=== PATIENT | female | born 1930 | race American Indian/Alaskan Native ===

== ENCOUNTER 2017-08-05 17:16 | Inpatient (IN) | payer MEDICARE, MEDICAID ==
[2017-08-05 17:17] VITALS: BMI 20.5
--- NOTE | 2017-08-05 17:38 | ED PDOC ---
Arrival/HPI - General Historian: Patient - History of Present Illness Time/Duration: Prior to Arrival <Zari Hodge - Last Filed: 08/05/17 20:14> <Neo Bernabe - Last Filed: 08/05/17 22:41> - General Chief Complaint: Psychiatric Evaluation Time Seen by Provider: 08/05/17 17:18 - History of Present Illness Narrative History of Present Illness (Text): 08/05/17 17:38 87-year-old female presents today brought in by ambulance after a suicide attempt. Per intermediate staff the patient tried to hang herself in her room. Patient complaining of chronic abdominal pain. Patient states she has been unable to use the bathroom and everything that they have given her in the intermediate has not worked. Patient complaining of diffuse abdominal tenderness. Denies chest pain or shortness of breath. Denies urinary symptoms. Patient denies fevers or chills. Patient complaining of depression. Patient states "I tried to hang myself today because the abdominal pain is so bad". ( Zari Hodge) Past Medical History - Provider Review Nursing Documentation Reviewed: Yes - Travel History Have you recently traveled outside [place] w/in the past 3 mons?: No - Tetanus Immunization Tetanus Immunization: Unknown - Cardiac Hx Cardiac Disorders: Yes Hx Angina: No Hx Cardiac Arrhythmia: No Hx Circulatory Problems: No Hx Congestive Heart Failure: No Hx Heart Murmur: No Hx Heart Transplant: No Hx Hypertension: No Hx Internal Defibrillator: No Hx Mitral Valve Prolapse: No Hx Pacemaker: No Hx Peripheral Edema: No Hx Peripheral Vascular Disease: No - Pulmonary Hx Respiratory Disorders: No Hx Asthma: No Hx Bronchitis: No Hx Chronic Obstructive Pulmonary Disease (COPD): No Hx Emphysema: No Hx Pneumonia: No Hx Respiratory Aspiration: No Hx Respiratory Tract Infection: No Hx Sleep Apnea: No Hx Tuberculosis: No - Neurological Hx Neurological Disorder: Yes Hx Alzheimer's Disease: Yes HX Cerebrovascular Accident: No Hx Dementia: Yes Hx Dizziness: No Hx Meningitis: No Hx Migraine: No Hx Parkinson's Disease: No Hx Seizures: No Hx Transient Ischemic Attacks (TIA): No - HEENT Hx HEENT Disorder: No Hx Blind: No Hx Cataracts: No Hx Deafness: No Hx Difficulty Chewing: No Hx Epistaxis: No Hx Glaucoma: No Hx Macular Degeneration: No - Renal Hx Renal Disorder: No Hx Dialysis: No Hx Kidney Stones: No Hx Pyelonephritis: No Hx Renal Cancer: No Hx Renal Failure: No - Endocrine/Metabolic Hx Endocrine Disorders: No Hx Adrenal Cancer: No Hx Diabetes Insipidus: No Hx Diabetes Mellitus Type 1: No Hx Diabetes Mellitus Type 2: No Hx Hyperthyroidism: No Hx Hypothyroidism: No Hx Systemic Lupus Erythematosus: No - Hematological/Oncological Hx Blood Disorders: No Hx AIDS: No Hx Anemia: No Hx Cancer: No Hx Chemotherapy: No Hx Cirrhosis: No Hx Hemophilia: No Hx Hepatitis A: No Hx Hepatitis B: No Hx Hepatitis C: No Hx Metastasis: No Hx Shingles: No Hx Sickle Cell Disease: No Hx Unexplained Bleeding: No - Integumentary Hx Dermatological Disorder: No Hx Basal Cell Carcinoma: No Hx Eczema: No Hx Melanoma: No Hx Psoriasis: No Hx Squamous Cell Carcinoma: No - Musculoskeletal/Rheumatological Hx Musculoskeletal Disorders: No Hx Arthritis: No Hx Back Pain: No Hx Degenerative Joint Disease: No Hx Falls: No Hx Fractures: No Hx Gout: No Hx Herniated Disk: No Hx Myasthenia Gravis: No Hx Osteoarthritis: No Hx Osteomyelitis: No Hx Osteoporosis: No Hx Rhabdomyolysis: No Hx Spinal Stenosis: No Hx Unsteady Gait: No - Gastrointestinal Hx Gastrointestinal Disorders: No Hx Colostomy: No Hx Crohn's Disease: No Hx Diverticulitis: No Hx Gall Bladder Disease: No Hx Gastroesophageal Reflux: No Hx Gastrointestinal Ulcer: No Hx Ileostomy: No Hx Liver Failure: No Hx Pancreatitis: No HX Swallowing Problems: No - Genitourinary/Gynecological Hx Genitourinary Disorders: No Hx Incontinence: No Hx Prostate Problems: No Hx Sexually Transmitted Diseases: No Hx Urinary Tract Infection: No - Psychiatric Hx Psychophysiologic Disorder: Yes Hx Anxiety: Yes Hx Bipolar Disorder: Yes Hx Depression: Yes Hx Emotional Abuse: No Hx Hallucinations: No Hx Panic Disorder: No Hx Post Traumatic Stress Disorder: No Hx Psychosis: No Hx Physical Abuse: No Hx Schizophrenia: No Hx Sexual Abuse: No Hx Substance Use: No - Surgical History Hx Amputation: No Hx Appendectomy: No Hx Cardiac Catheterization: No Hx Cholecystectomy: No Hx Coronary Stent: No Hx Gastric Bypass Surgery: No Hx Hysterectomy: No Hx Joint Replacement: No Hx Kidney Transplant: No Hx Liver Transplant: No Hx Mastectomy: No Hx Musculoskeletal Surgery: No Hx Open Heart Surgery: No Hx Orthopedic Surgery: No Hx Splenectomy: No Hx Valve Replacement: No - Suicidal Assessment Feels Threatened In Home Enviroment: No <Zari Hodge - Last Filed: 08/05/17 20:14> Family/Social History - Physician Review Nursing Documentation Reviewed: Yes Family/Social History: Unknown Family HX Smoking Status: Unknown If Ever Smoked Hx Alcohol Use: No Hx Substance Use: No <Zari Hodge - Last Filed: 08/05/17 20:14> Allergies/Home Meds <Ulises Hodgefalguni Callaway - Last Filed: 08/05/17 20:14> <Neo Bernabe - Last Filed: 08/05/17 22:41> Allergies/Adverse Reactions: Allergies No Known Allergies Allergy (Verified 08/05/17 17:21) Home Medications: Home Meds Medication Instructions Recorded Confirmed Alprazolam [Xanax] 0.25 mg PO DAILY 08/05/17 08/05/17 Atorvastatin [Lipitor] 20 mg PO DAILY 08/05/17 08/05/17 Docusate [Colace] 100 mg PO DAILY 08/05/17 08/05/17 Multivitamin [Daily Thanh] 1 tab PO DAILY 08/05/17 08/05/17 Risperidone [Risperdal] 0.5 mg PO HS 08/05/17 08/05/17 Review of Systems - Review of Systems Constitutional: absent: Fatigue, Fevers Respiratory: absent: SOB, Cough Cardiovascular: absent: Chest Pain, Palpitations Gastrointestinal: Abdominal Pain, Constipation. absent: Diarrhea, Nausea, Vomiting Genitourinary Female: absent: Dysuria, Frequency, Hematuria Musculoskeletal: absent: Arthralgias, Back Pain, Neck Pain Skin: absent: Rash, Pruritis Neurological: absent: Headache, Dizziness Psychiatric: Depression, Suicidal Ideation <Zari Hodge - Last Filed: 08/05/17 20:14> Physical Exam Vital Signs Reviewed: Yes Temperature: Afebrile Blood Pressure: Normal Pulse: Regular Respiratory Rate: Normal Appearance: Positive for: Well-Appearing, Non-Toxic, Comfortable Pain Distress: None Mental Status: Positive for: Alert and Oriented X 3 - Systems Exam Head: Present: Atraumatic Mouth: Present: Moist Mucous Membranes Neck: Present: Normal Range of Motion Respiratory/Chest: Present: Clear to Auscultation Cardiovascular: Present: Regular Rate and Rhythm Abdomen: Present: Tenderness (+ diffuse abdominal tenderness), Normal Bowel Sounds Back: Present: Normal Inspection Upper Extremity: Present: Normal ROM Lower Extremity: Present: Normal ROM Neurological: Present: GCS=15, Speech Normal Skin: Present: Warm, Dry Psychiatric: Present: Alert, Normal Affect, Suicidal Ideation <Zari Hodge - Last Filed: 08/05/17 20:14> Vital Signs Temp Pulse Resp BP Pulse Ox 08/05/17 17:28 99 F 66 16 145/76 100 Medical Decision Making <AyeshaZari Callaway - Last Filed: 08/05/17 20:14> - Lab Interpretations I have reviewed the lab results: Yes <Neo Bernabe - Last Filed: 08/05/17 22:41> ED Course and Treatment: 08/05/17 17:41 87yr old female with abdominal pain and suicide attempt at intermediate. Patient is nontoxic well-appearing in no distress vital signs are stable. family at bedside; states patient always with abdominal pain. CBC WNL CMP Tylenol Salicylate Alcohol level Urine drug screen UA; cxr: no infiltrate; reviewed by dr. bernabe. ekg: sinus robert with 1st degree av block and rbbb at 58bpm no st elevations. abd/pelvis CT; FINDINGS: Atelectasis/scarring at the lung bases. Limited noncontrast study. Please note evaluation for underlying visceral lesions/abnormality is limited without intravenous contrast. The liver, spleen, pancreas and right adrenal gland demonstrate no acute abnormalities. Slight prominence of left adrenal gland. No obstructing renal calculus or hydronephrosis. Atherosclerosis. Small fat containing umbilical hernia. Evaluation of the bowel limited without enteric contrast, particularly for underlying inflammation or lesion. Small hiatal hernia. No small bowel obstruction. Normal caliber appendix. Diverticulosis. Evidence of approximately 5.3 cm right ovarian cystic lesion. Further evaluation with dedicated ultrasound is recommended. Multilevel degenerative changes. Degenerative fusion at L4-L5. IMPRESSION: VALENCIA PAPPASISABEL | Final Radiology Report CONFIDENTIALITY STATEMENT This report is intended only for use by the referring physician, and only in accordance with law. If you received this in error, call [phone]. Page 2 of 2 Evidence of approximately 5.3 cm right ovarian cystic lesion. Further evaluation with dedicated ultrasound is recommended. Evaluation of the bowel limited without enteric contrast, particularly for underlying inflammation or lesion. Small hiatal hernia. Diverticulosis. Additional details/findings as above. Correlate clinically. Followup as warranted head CT; FINDINGS: Brain: Atrophy. Bilateral white matter hypoattenuation most consistent with chronic ischemic small vessel changes. Vascular calcification. No hemorrhage. No edema. Ventricles: No hydrocephalus. Bones: Skull is intact. Sinuses: Left sphenoid sinus appears chronically opacified, periosteal changes, calcification within. Partial visualization of mild right maxillary sinus mucosal thickening also with periosteal changes. Mastoid air cells: Fluid in bilateral mastoid air cells. IMPRESSION: No CT evidence of acute intracranial abnormality. Please see details/findings as above case discussed with dr. diane; he knows patient well; add ct head; pt will need psych admission; he would like to be on consult. case signed out to dr. bernabe pending lab/urine and PES evaluation (Zari Hodge) 08/05/17 21:00 Case endorsed to me by SUNDAY oHdge, pending labs, Urinalysis, and PES evaluation. 08/05/17 21:50 Reviewed labs, urine tox screen positive for benzodiazepines. Pt medically cleared for psychiatric evaluation. PES screener Staci to ED to evaluate pt. ( Neo Bernabe) - Lab Interpretations Lab Results: 08/05/17 18:30 08/05/17 19:55 Lab Results 08/05/17 20:10: Urine Opiates Screen Negative, Urine Methadone Screen Negative, Ur Barbiturates Screen Negative, Ur Phencyclidine Scrn Negative, Ur Amphetamines Screen Negative, U Benzodiazepines Scrn Positive H, U Oth Cocaine Metabols Negative, U Cannabinoids Screen Negative 08/05/17 20:10: Urine Color Yellow, Urine Appearance Clear, Urine pH 8.0, Ur Specific [place] 1.015, Urine Protein Negative, Urine Glucose (UA) Negative, Urine Ketones Negative, Urine Blood Negative, Urine Nitrate Negative, Urine Bilirubin Negative, Urine Urobilinogen 0.2, Ur Leukocyte Esterase Small H, Urine RBC 0 - 2, Urine WBC 0 - 2, Ur Epithelial Cells 1 - 3, Amorphous Sediment Moderate, Urine Bacteria Mod 08/05/17 19:55: Alcohol, Quantitative < 10 08/05/17 19:55: Salicylates < 1 L, Acetaminophen < 10.0 L 08/05/17 19:55: Sodium 139, Potassium 4.8, Chloride 105, Carbon Dioxide 26, Anion Gap 13, BUN 10, Creatinine 0.7, Est GFR ( Amer) > 60, Est GFR (Non- Af Amer) > 60, Random Glucose 87, Calcium 9.3, Total Bilirubin 0.7, AST 45 H, ALT 30, Alkaline Phosphatase 114, Total Protein 7.2, Albumin 4.0, Globulin 3.2, Albumin/Globulin Ratio 1.3, Lipase 132 08/05/17 18:30: WBC 3.7 L, RBC 4.68, Hgb 13.4, Hct 39.5, MCV 84.4, MCH 28.6, MCHC 33.9, RDW 14.1, Plt Count 222, MPV 8.9, Gran % 35.2 L, Lymph % (Auto) 55.1 H, [place] % (Auto) 8.3 H, Eos % (Auto) 1.1 L, Baso % (Auto) 0.3, Gran # 1.32 L, Lymph # 2.1, [place] # 0.3, Eos # 0.0, Baso # 0.01 - RAD Interpretation Radiology Orders: 08/05/17 17:31 ABD & PELVIS W/O PO OR IV CONT [CT] Stat CHEST PORTABLE [RAD] Stat 08/05/17 18:55 HEAD W/O CONTRAST [CT] Stat 08/05/17 22:36 PELVIS ULTRASOUND [US] Routine - Medication Orders Current Medication Orders: Nitrofurantoin Macrocrystals (Macrobid) 100 mg PO Q12 STEPHEN Risperidone (Risperdal Tab) 0.5 mg PO ONCE ONE PRN Reason: Protocol Stop: 08/06/17 21:31 Last Admin: 08/05/17 22:07 Dose: 0.5 mg - PA / SENIOR PRODUCTION MANAGER / Resident Statement / has reviewed & agrees with the documentation as recorded. / has examined the patient and agrees with the treatment plan. <Neo Bernabe - Last Filed: 08/05/17 22:41> Disposition/Present on Arrival - Present on Arrival Any Indicators Present on Arrival: No History of DVT/PE: No History of Uncontrolled Diabetes: No Urinary Catheter: No History of Decub. Ulcer: No History Surgical Site Infection Following: None - Disposition Have Diagnosis and Disposition been Completed?: Yes <Zari Hodge - Last Filed: 08/05/17 20:14> - Present on Arrival Any Indicators Present on Arrival: No History of DVT/PE: No History of Uncontrolled Diabetes: No Urinary Catheter: No History of Decub. Ulcer: No History Surgical Site Infection Following: None - Disposition Disposition Time: 22:41 Patient Plan: Admission <Neo Bernabe - Last Filed: 08/05/17 22:41> - Disposition Diagnosis: Chronic abdominal pain, Bipolar disorder, Dementia Disposition: HOSPITALIZED Patient Problems: Current Active Problems Problem Status Onset Chronic abdominal pain Acute Depression Acute Condition: STABLE Forms: [employer] (Nepali)
[2017-08-05 19:01] LABS: BASO # 0.01 K/mm3 (0.0-2.0); BASO % 0.3 % (0.0-3.0); EOS % 1.1 % (1.5-5.0); GRAN # 1.32 (1.4-6.5); GRAN % 35.2 % (50.0-68.0); HEMATOCRIT 39.5 % (36.0-48.0); LYMPH # 2.1 (1.2-3.4); LYMPH % 55.1 % (22.0-35.0); MEAN CELL VOLUME 84.4 fl (80.0-105.0); MEAN CORPUSCULAR HEMOGLOBIN 28.6 pg (25.0-35.0); MEAN CORPUSCULAR HGB CONC 33.9 g/dl (31.0-37.0); MEAN PLATELET VOLUME 8.9 fl (7.0-11.0); MONO # 0.3 (0.1-0.6); MONO % 8.3 % (1.0-6.0); RED CELL DISTRIBUTION WIDTH 14.1 % (11.5-14.5); WHITE BLOOD COUNT 3.7 10^3/ul (4.5-11.0)
--- NOTE | 2017-08-05 20:13 | CT ---
EXAM: CT Head Without Intravenous Contrast CLINICAL HISTORY: 87 years old, female; Condition or disease; Patient HX: Psych/si/behavioral changes TECHNIQUE: Axial computed tomography images of the head/brain without intravenous contrast. All CT scans at this facility use one or more dose reduction techniques, viz.: automated exposure control; ma/kV adjustment per patient size (including targeted exams where dose is matched to indication; i.e. head); or iterative reconstruction technique. COMPARISON: No relevant prior studies available. FINDINGS: Brain: Atrophy. Bilateral white matter hypoattenuation most consistent with chronic ischemic small vessel changes. Vascular calcification. No hemorrhage. No edema. Ventricles: No hydrocephalus. Bones: Skull is intact. Sinuses: Left sphenoid sinus appears chronically opacified, periosteal changes, calcification within. Partial visualization of mild right maxillary sinus mucosal thickening also with periosteal changes. Mastoid air cells: Fluid in bilateral mastoid air cells. IMPRESSION: No CT evidence of acute intracranial abnormality. Please see details/findings as above.
--- NOTE | 2017-08-05 20:17 | CT ---
EXAM: CT Abdomen and Pelvis Without Intravenous Contrast CLINICAL HISTORY: 87 years old, female; Pain; Abdominal pain; Patient HX: Abd pain, constipation TECHNIQUE: Axial computed tomography images of the abdomen and pelvis without intravenous contrast. All CT scans at this facility use one or more dose reduction techniques, viz.: automated exposure control; ma/kV adjustment per patient size (including targeted exams where dose is matched to indication; i.e. head); or iterative reconstruction technique. Coronal and sagittal reformatted images were created and reviewed. COMPARISON: No relevant prior studies available. FINDINGS: Atelectasis/scarring at the lung bases. Limited noncontrast study. Please note evaluation for underlying visceral lesions/abnormality is limited without intravenous contrast. The liver, spleen, pancreas and right adrenal gland demonstrate no acute abnormalities. Slight prominence of left adrenal gland. No obstructing renal calculus or hydronephrosis. Atherosclerosis. Small fat containing umbilical hernia. Evaluation of the bowel limited without enteric contrast, particularly for underlying inflammation or lesion. Small hiatal hernia. No small bowel obstruction. Normal caliber appendix. Diverticulosis. Evidence of approximately 5.3 cm right ovarian cystic lesion. Further evaluation with dedicated ultrasound is recommended. Multilevel degenerative changes. Degenerative fusion at L4-L5. IMPRESSION: Evidence of approximately 5.3 cm right ovarian cystic lesion. Further evaluation with dedicated ultrasound is recommended. Evaluation of the bowel limited without enteric contrast, particularly for underlying inflammation or lesion. Small hiatal hernia. Diverticulosis. Additional details/findings as above. Correlate clinically. Followup as warranted.
[2017-08-05 20:49] LABS: ALB/GLOB RATIO 1.3 (1.1-1.8); ALKALINE PHOSPHATASE 114 U/L (38-126); ALT/SGPT 30 U/L (7-56); AST/SGOT 45 U/L (14-36); BILIRUBIN,TOTAL 0.7 mg/dL (0.2-1.3); BLOOD UREA NITROGEN 10 mg/dL (7-21); CALCIUM 9.3 mg/dL (8.4-10.5); CARBON DIOXIDE 26 mmol/L (21-33); CHLORIDE 105 mmol/L (98-107); GFR AFRICAN-AMERICAN > 60; GLUCOSE,RANDOM 87 mg/dL (70-110); LIPASE 132 U/L (23-300); SODIUM 139 mmol/L (132-148); TOTAL PROTEIN 7.2 g/dL (5.8-8.3)
[2017-08-05 20:51] LABS: URINE BILIRUBIN NEGATIVE (NEGATIVE); URINE BLOOD NEGATIVE (NEGATIVE); URINE GLUCOSE (UA) NEGATIVE (NEGATIVE); URINE KETONE NEGATIVE (NEGATIVE); URINE LEUKOCYTE ESTERASE SMALL Leu/uL (NEGATIVE); URINE PROTEIN NEGATIVE mg/dL (<30 mg/dL); URINE UROBILINOGEN 0.2 E.U./dL (<1 E.U./dL)
[2017-08-05 20:53] LABS: URINE APPEARANCE CLEAR (CLEAR); URINE COLOR YELLOW (YELLOW)
[2017-08-05 20:59] LABS: POTASSIUM 4.8 mmol/L (3.6-5.0)
[2017-08-05 21:25] LABS: URINE AMORPHOUS SEDIMENT MODERATE; URINE BACTERIA MOD (NEG); URINE RBC 0 - 2 /hpf (0-2); URINE WBC 0 - 2 /hpf (0-6)
--- NOTE | 2017-08-06 00:38 | US ---
EXAM: US Pelvis, Transabdominal US Pelvis, Transvaginal CLINICAL HISTORY: 87 years old, female; Abnormal findings; Abnormal imaging test; Additional info: Cyst TECHNIQUE: Real-time transabdominal and transvaginal pelvic ultrasound (complete) with image documentation. Transvaginal imaging was used for better evaluation of the endometrium and adnexa. COMPARISON: CT - ABD PELVIS W/O PO OR IV CONT 08/05/2017 7:01:52 PM FINDINGS: Uterus/cervix: Measured at 4.4 x 1.7 x 2.5 cm. Calcification noted. Endometrial stripe measured at 2.6 mm. Right ovary: 4.8 x 3.4 x 5.7 measurement of ovary/cyst. Although cyst itself appears simple, evaluation is limited. Doppler images not obtained. Left ovary: Not visualized. Free fluid: No free fluid. IMPRESSION: 4.8 x 3.4 x 5.7 measurement of ovary/cyst. Although cyst itself appears simple, evaluation is limited. A cyst of this size is abnormal in a postmenopausal patient. Followup evaluation recommended. Additional details as above.
[2017-08-06] MEDS: DiphenhydrAMINE 12.5 mg/5 ml LIQ UD (5 ml) PO PRN (00:56)
--- NOTE | 2017-08-06 03:40 | PCM.BM ---
<Walter Greene - Last Filed: 08/06/17 03:37> Treatment Plan Problems - Problems identified on initial assessmt suicidal ideation Date Initiated: 08/05/17 Time Initiated: 01:25 Assessment reference: NA Status: Active Treatment assets and liabiliti Patient Assests: ADL independent, negotiates basic needs Patient Liabilities: imparied memory - Milieu Protocol Maintain good personal hygiene: daily Encourage regular showers, daily Remind patient to perform daily oral care, daily Assist patient to perform ADL's Maintain personal safety: daily Educate patient to report safety concerns to staff, daily Monitor environment for contraband/sharps Medication safety: Monitor for expected outcome, potential side effects: daily, Assess barriers to learning: daily, Assess readiness for medication education: daily Family Contact Family involvement: Family/SO is involved Family contact: Patient agrees to contact, Telephone contact initiated by staff Family contact name: Janice Mello - Goals for Treatment Patient goals for treatment: I want to be able to go to the bathroom Discharge/Continuing Care - Education Needs Education Needs: Patient Medication, Patient Diagnosis/Disease Process, Patient Coping Skills, Patient Anger Management skills, Patient Placement options, Patient Activities of Daily Living, Patient Pain, Patient Health Practices/ Safety, Patient Personal Hygiene/Grooming, Patient Aftercare Safety Plan - Discharge Discharge Criteria: Free of Suicidal thoughts, Free of agitation, Normal sleep pattern <Jevon Cuevas - Last Filed: 08/06/17 12:37> Treatment Plan Problems - Problems identified on initial assessmt suicidal ideation Priority: 5 Depression Date Initiated: 08/06/17 Time Initiated: 12:37 Assessment reference: NA Status: Active Priority: 1 Hopelessness Date Initiated: 08/06/17 Time Initiated: 12:37 Assessment reference: NA Status: Active Priority: 2 Ineffective Coping Date Initiated: 08/06/17 Time Initiated: 12:38 Assessment reference: NA Status: Active Priority: 3 Altered Thought Process Date Initiated: 08/06/17 Time Initiated: 12:38 Assessment reference: NA Status: Active Priority: 4 <Yanelis Bentley - Last Filed: 08/06/17 14:58> - Diagnosis (1) Somatic delusion Status: Acute Interventions: 08/06/17 14:59 Psychoeducation/psychotherapy Psychopharmacology/adjustment of medications as needed/ monitoring possible side effects Evaluate pt on daily basis Compliance with medications and follow up appointments Long acting medication if pt is noncompliant with pill form Suicide and homicide risk assessment and prevention, coping strategies, safety plan Relapse prevention Reduction of symptoms Improve functional status Possible assertive community treatment Cognitive behavioral therapy Family involvement Possible social skill training as outpatient (2) MDD (major depressive disorder) Status: Acute Interventions: 08/06/17 15:00 Psychoeducation Psychopharmacology/adjustment of medications as needed/ monitoring possible side effects Evaluate pt on daily basis Compliance with medications and follow up appointments Suicide and homicide risk assessment and prevention Relapse prevention Reduction of symptoms Improve functional status Family involvement As outpatient: cognitive behavioral therapy (3) Dementia Status: Acute Interventions: 08/06/17 15:00 Pt will be seen by medical team as needed Medications will be confirmed and resumed Additional consultation by specialists as needed Lab work as needed (CBC, CMP, TSH, free T4, UA, Urine test for females as needed) CXR as needed EKG Physical therapy valuation as needed neurology consult as needed <Latrice Upton - Last Filed: 08/06/17 16:27>
[2017-08-06 07:39] LABS: HEMATOCRIT 38.4 % (36.0-48.0); MEAN CELL VOLUME 83.7 fl (80.0-105.0); MEAN CORPUSCULAR HEMOGLOBIN 28.3 pg (25.0-35.0); MEAN CORPUSCULAR HGB CONC 33.9 g/dl (31.0-37.0); MEAN PLATELET VOLUME 8.2 fl (7.0-11.0); WHITE BLOOD COUNT 3.7 10^3/ul (4.5-11.0)
[2017-08-06 07:53] LABS: ALB/GLOB RATIO 1.2 (1.1-1.8); ALKALINE PHOSPHATASE 96 U/L (38-126); ALT/SGPT 33 U/L (7-56); AST/SGOT 26 U/L (14-36); BILIRUBIN,TOTAL 0.5 mg/dL (0.2-1.3); BLOOD UREA NITROGEN 7 mg/dL (7-21); CALCIUM 9.2 mg/dL (8.4-10.5); CARBON DIOXIDE 24 mmol/L (21-33); CHLORIDE 107 mmol/L (95-110); CHOLESTEROL 191 mg/dL (130-200); GFR AFRICAN-AMERICAN > 60; GLUCOSE,RANDOM 84 mg/dL (70-110); POTASSIUM 4.1 mmol/L (3.6-5.0); SODIUM 141 mmol/L (132-148); TOTAL PROTEIN 6.6 g/dL (5.8-8.3)
--- NOTE | 2017-08-06 08:42 | CON ---
DATE: 08/05/2017 HISTORY OF PRESENT ILLNESS: I have known Alessandro for two years, now taking care of her at [facility] where she is a permanent resident. She is here in the emergency room with suicidal situation where she was trying to attempt to hang herself I believe with a telephone cord, has a complaint of chronic abdominal pain, constipation, she said she could not take it anymore. She does have a long history of psychiatric problems, chronic issues, chronic complaints, and they change every time I have seen her. PAST MEDICAL HISTORY: She has a past medical history of Alzheimer's disease, dementia, anxiety, bipolar, depression, who has had chronic complaints about feeling of a hole in her head. FAMILY HISTORY: She has no known family history. SOCIAL HISTORY: Denies smoking, drinking, or substance abuse. ALLERGIES: NO KNOWN DRUG ALLERGIES. MEDICATIONS: She is on Xanax, Lipitor for high cholesterol, Colace for constipation, vitamin, and Risperdal by the psychiatrist. REVIEW OF SYSTEMS: No acute vision or hearing changes. She has this chronic complaint of a hole in her head that comes from the top of her mouth, but has nothing there. No chest pain. No palpitations. No shortness of breath or cough. Presently, she has abdominal pain, constipation. No diarrhea, nausea or vomiting. No problems urinating. No back pain or neck pain. No skin itching. No rashes. No dizziness. No headache, but chronic head pain. There is depression and suicidal ideation tonight . PHYSICAL EXAMINATION: VITAL SIGNS: She has 99 temperature, 66 pulse, 16 respiratory rate, 145/76 blood pressure, and 100% O2 sat. GENERAL: She is comfortable, appearing nontoxic at this time. She is alert. She understands she is in the emergency room of [facility]. HEENT: Head is atraumatic and normocephalic. Throat is moist. NECK: Supple. HEART: Regular rate. LUNGS: Clear to auscultation. ABDOMEN: Has diffuse abdominal tenderness, but there are bowel sounds. No guarding. No rebound. No CVA tenderness. EXTREMITIES: Have no edema. LUMBER HANDLER: GCS is 15. Speech is normal. SKIN: Warm and dry. No apparent rash or ulcer. LYMPHATICS: Thyroid midline. No palpable or appreciable lymphadenopathy. DIAGNOSTIC DATA: She had multiple tests. She has a urine, which is positive for benzodiazepine, Urine is clear small leukocyte. I will put her on antibiotics for urinary tract infection. She has 139 sodium, potassium 4.8, BUN 10, creatinine 0.7, GFR is greater than 60, sugar is 87, calcium is 9.3, total bilirubin is 0.7, AST is 45, ALT is 30, alkaline phosphatase 114. Total protein is 7.2, albumin is 4, globulin 3.2, lipase is 132. White count 3.7, hemoglobin, 30.4, hematocrit 39.5 and platelets are 222. She had a couple of CAT scans done. Abdominal pain she has been having shows a 5.3 cm right ovarian cyst occlusion. We had an ultrasound to further look at that, that was all they found. CAT scan of the head was fine. Chest x-ray is pending. She is going to go to psychiatry. I was consulted. I will put her on medicine for urinary tract infection and get a ultrasound of the ovaries and the pelvis. I will watch her closely, check her labs in the morning. Thank you very much for the consult. Addy Mtz DO MTDD
--- NOTE | 2017-08-06 10:12 | RAD ---
HISTORY: pes/ abd pain COMPARISON: [facility] 12/18/2013. FINDINGS: LUNGS: Trace linear atelectasis or fibrosis in the bilateral bases approaching the costophrenic sulci laterally bilaterally. No acute infiltrate is appreciate bilaterally. PLEURA: No significant pleural effusion identified, no pneumothorax apparent. CARDIOVASCULAR: Normal. OSSEOUS STRUCTURES: No significant abnormalities. VISUALIZED UPPER ABDOMEN: Normal. OTHER FINDINGS: None. IMPRESSION: Limited linear atelectasis or fibrosis in the bilateral bases as discussed above with no acute infiltrate pleural effusion or pneumothorax appreciable this time. No acute cardiac disease appreciable grossly.
--- NOTE | 2017-08-06 12:11 | PN ---
DATE: SUBJECTIVE: I saw her in the psychiatric unit. There is a 1:1 on her. She is still mentally off and complaining. She is on Benadryl, Celexa, Macrobid for UTI, Risperdal, Xanax. She had multiple tests. She has an ovarian cyst, which in her age group is not supposed to be there. She had transvaginal ultrasound, pelvic ultrasound, head CT. Abdomen and pelvic CT and chest x-ray is pending. I consulted with Dr. Miranda of [facility] doctor to evaluate the ovarian cyst. She needs psychiatry to help us with her mentation. PHYSICAL EXAMINATION VITAL SIGNS: She has a 98.3 temperature, 68 pulse, 165/97 blood pressure, 18 respiratory rate, 100% O2 saturation on room air. I will keep an eye on her blood pressure, it is the first time it has been high; if it continues to be high, I will put her on antihypertensive medications. HEENT: Head is atraumatic, normocephalic. HEART: Regular rate. LUNGS: Clear to auscultation. ABDOMEN: Soft. EXTREMITIES: No edema. ASSESSMENT AND PLAN: We will watch her very closely in the psychiatric unit. Get [facility] to see her. Watch her blood pressure and she is here for suicidal ideation and possible plan and treatment for that as needed, depression, urinary tract infection, ovarian cyst, now hypertension. We will follow closely. Addy Mtz DO
--- NOTE | 2017-08-06 15:37 | PCM.PSYCH ---
Initial Psychiatric Evaluation - Initial Psychiatric Evaluation Type of Admission: Voluntary Legal Status: DPOA (pt's POA signed consent for tx, original was placed in chart ) Chief Complaint (in patient's own words): "I wanted to end up my life, I thought I have a gastric cancer..." Patient's Reaction to Hospitalization: pt was admitted for evaluation of depressive symptoms which are related to somatic delusions that pt has stomach cancer, pt put a telephone cord around her neck, attempted to kill herself in the NH. History of Present Illness and Precipitating Events: 87-year-old female with h/o dementia with psychosis, one previous psych admission to this facility in 2013 under 's service, pt has POA pt's niece who sign consent for tx, pt was sent by [facility] s/p suicidal attempt, pt put a telephone cord around her neck, pt also has a lot of psychosomatic delusions about stomach cancer, multiple abdominal complaints. Due to the severity of patients symptoms s/p suicidal attempt, disorganized thoughts and behavior, pt could not be maintained as outpatient setting, needs further evaluation and stabilization in acute psychiatric unit. Stressors: somatic delusions and possible abdominal pain and discomfort. pt was seen at tx team meeting, pt is on 1:1 for risk of falls. Psychosis: pt has a lot of somatic delusions "I know I have a stomach cancer because I have pain", pt is convinced that it it true, d/w today, no evidence for that. Depression: "I was very depressed, I wanted to end up my life", "Now I don't feel this way, I changed my mind", no clear explanation why, pt also reported to feel hopeless and helpless. Suicidal thoughts/plans/intent:pt denied thoughts of harming self or others during the interview, denied intent or plan, no remorse for her attempt in NH. Rosa:no manic symptoms identified or reported. Anxiety:denied PTSD:denied Abuse:denied Substance abuse: pt denied using drugs, denied smoking. Past psychiatric h/o:h/o dementia with psychosis, as per h/o Bipolar disorder II , h/o one prior psych admission in 2013 into this facility for tactile hallucinations, inability to function. Suicidal attempts: denied Medical h/o: frontotemporal dementia, hyperlipidemia, Alzheimer's disease Family h/o: unknown Social h/o: as per previous assessment pt was , lived in [place], pt has 2 sons, nieces. Treatment goals: "I want to feel better and get out of here...." 08/06/17 07:29 08/06/17 07:29 Lab Results 08/06/17 07:29: Hemoglobin A1c 5.7 08/06/17 07:29: Sodium 141, Potassium 4.1, Chloride 107, Carbon Dioxide 24, Anion Gap 14, BUN 7, Creatinine 0.7, Est GFR ( Amer) > 60, Est GFR (Non- Af Amer) > 60, Random Glucose 84, Calcium 9.2, Total Bilirubin 0.5, AST 26, ALT 33, Alkaline Phosphatase 96, Total Protein 6.6, Albumin 3.5, Globulin 3.1, Albumin/Globulin Ratio 1.2, Triglycerides 82, Cholesterol 191, LDL Cholesterol Direct 74, HDL Cholesterol 75 H 08/06/17 07:29: WBC 3.7 L, RBC 4.59, Hgb 13.0, Hct 38.4, MCV 83.7, MCH 28.3, MCHC 33.9, RDW 14.0, Plt Count 196, MPV 8.2 08/05/17 20:10: Urine Opiates Screen Negative, Urine Methadone Screen Negative, Ur Barbiturates Screen Negative, Ur Phencyclidine Scrn Negative, Ur Amphetamines Screen Negative, U Benzodiazepines Scrn Positive H, U Oth Cocaine Metabols Negative, U Cannabinoids Screen Negative 08/05/17 20:10: Urine Color Yellow, Urine Appearance Clear, Urine pH 8.0, Ur Specific [place] 1.015, Urine Protein Negative, Urine Glucose (UA) Negative, Urine Ketones Negative, Urine Blood Negative, Urine Nitrate Negative, Urine Bilirubin Negative, Urine Urobilinogen 0.2, Ur Leukocyte Esterase Small H, Urine RBC 0 - 2, Urine WBC 0 - 2, Ur Epithelial Cells 1 - 3, Amorphous Sediment Moderate, Urine Bacteria Mod 08/05/17 19:55: Alcohol, Quantitative < 10 08/05/17 19:55: Salicylates < 1 L, Acetaminophen < 10.0 L 08/05/17 19:55: Sodium 139, Potassium 4.8, Chloride 105, Carbon Dioxide 26, Anion Gap 13, BUN 10, Creatinine 0.7, Est GFR ( Amer) > 60, Est GFR (Non- Af Amer) > 60, Random Glucose 87, Calcium 9.3, Total Bilirubin 0.7, AST 45 H, ALT 30, Alkaline Phosphatase 114, Total Protein 7.2, Albumin 4.0, Globulin 3.2, Albumin/Globulin Ratio 1.3, Lipase 132 08/05/17 18:30: WBC 3.7 L, RBC 4.68, Hgb 13.4, Hct 39.5, MCV 84.4, MCH 28.6, MCHC 33.9, RDW 14.1, Plt Count 222, MPV 8.9, Gran % 35.2 L, Lymph % (Auto) 55.1 H, [place] % (Auto) 8.3 H, Eos % (Auto) 1.1 L, Baso % (Auto) 0.3, Gran # 1.32 L, Lymph # 2.1, [place] # 0.3, Eos # 0.0, Baso # 0.01 Vital Signs Temp Pulse Resp BP Pulse Ox 08/06/17 01:51 18 08/06/17 00:47 98.3 F 68 18 165/97 H 100 08/05/17 23:13 72 18 138/88 100 08/05/17 17:28 99 F 66 16 145/76 100 Review of Systems: see Medical consult. MSE: acceptable personal hygiene, poor ADLs, Pt deemed to be reliable historian , aware of the reasons for this admission, well related to this marketing writer. Pt looks stated age, very thin build AAF, there is some psychomotor retardation, speech was: underproductive, low volume, eye contact:intermittent, mood described: "I was feeling depressed", affect: constricted, but was minimally reactive, mood congruent, thought process: goal directed, thought content: deneid SI/ HI at the moment of the interview, contracted for safety, pt has multiple somatic delusions, denied paranoid ideation, insight/judgement:limited , impulse control is unpredictable. Impression: as per h/o Alzheimer's dementia with psychosis as per h/o frontotemporal dementia as per h/o bipolar disorder. Treatment plan: pt is on 1:1 for safety Milieu/structure/supportive therapy Medical consult appreciated, see medical team note for more detailed info SW consultation for discharge plan and social issues Med management celexa was started for depression meds resumed from the NH xanax 0.25mg o daily as per [place] atorvastatin 20mg po daily as per [place] docusate 1cap bid as per [place] MVI po daily as per [place] risperidal 0.25mg po daily and 0.5mg po hs for psychosis Family involvement Follow up on labs Will monitor closely Pt was educated about risk/benefits and alternatives of medications, coping strategies (safety plan, suicide prevention), relapse prevention, importance of follow up with psychiatrist and therapist, stay away from drugs/alcohol/smoking Current Medications: Active Medications Generic Name Dose Route Start Last Admin Trade Name Freq PRN Reason Stop Dose Admin Alprazolam 0.25 mg 08/06/17 08:00 Xanax PO 08/13/17 08:01 DAILY STEPHEN Protocol Citalopram Hydrobromide 5 mg 08/06/17 08:00 Celexa PO DAILY STEPHEN Diphenhydramine HCl 12.5 mg 08/06/17 00:44 08/06/17 00:56 Benadryl PO 12.5 mg HS PRN Administration Insomnia Nitrofurantoin Macrocrystals 100 mg 08/06/17 06:00 08/06/17 07:03 Macrobid PO 100 mg Q12 STEPHEN Administration Risperidone 0.5 mg 08/06/17 21:30 08/05/17 22:07 Risperdal Tab PO 08/06/17 21:31 0.5 mg ONCE ONE Administration Protocol Risperidone 0.25 mg 08/06/17 08:00 Risperdal Tab PO DAILY STEPHEN Protocol Past Psychiatric History - Past Psychiatric History Pertinent Medical Hx (Current Medical&Sleep Prob, Allergies): Allergies Allergy/AdvReac Type Severity Reaction Status Date / Time No Known Allergies Allergy Verified 08/06/17 01:48 Alprazolam [Xanax] 0.25 mg PO DAILY 08/05/17 Atorvastatin [Lipitor] 20 mg PO DAILY 08/05/17 Docusate [Colace] 100 mg PO DAILY 08/05/17 Multivitamin [Daily Thanh] 1 tab PO DAILY 08/05/17 Risperidone [Risperdal] 0.5 mg PO HS 08/05/17 DSM 5 DX - Recommended/Plan of Treatment Projected ELOS: 7days Prognosis: guarded Discharge Plan and Discharge Criteria: Pt will be not depressed or manic, will be more hopeful, will be not psychotic or anxious, will be not having thoughts of harming self or others, will be tolerating medications well, will not have major side effects, will be able to function, will not pose threat to self or others. - Smoking Cessation Smoking Cessation Initiated: No Reason for not providing: pt denied smoking
--- NOTE | 2017-08-06 15:49 | CARD ---
APPROVED REPORT EKG Measurement Heart [id number] <Conclusion> Sinus bradycardia with 1st degree AV block Right bundle branch block Left anterior fascicular block Bifascicular block Abnormal ECG
--- NOTE | 2017-08-06 16:16 | CP.PCM.CON ---
History of Present Illness - History of Present Illness History of Present Illness: Patient is a 87 yo with a history of abdominal pain due to severe constipation, history of dementia with psychosis and currently being treated for recent suicidal gesture, found to have a 4x5cm simple ovarian lesion on CT scan. On further imaging, lesion was found to be a simple ovarian cyst. Patient was admitted for severe abdominal pain due to constipation and suicidal gesture secondary to the abdominal pain. Due to patient's current dementia, history is limited, but patient denies CP, no SOB, no N/V, tolerating PO diet, voiding well , ambulating well, no abdominal pain Past Patient History - Tetanus Immunizations Tetanus Immunization: Unknown - Past Social History Smoking Status: Unknown If Ever Smoked - CARDIAC Hx Cardiac Disorders: Yes Hx Hypertension: Yes - PULMONARY Hx Tuberculosis: No - NEUROLOGICAL HX Cerebrovascular Accident: No Hx Seizures: No - HEENT Hx HEENT Problems: No Hx Cataracts: No Hx Deafness: No Hx Difficulty Chewing: No Hx Epistaxis: No Hx Glaucoma: No Hx Macular Degeneration: No - RENAL Hx Chronic Kidney Disease: No Hx Dialysis: No Hx Kidney Stones: No Hx Pyelonephritis: No Hx Renal (Kidney) Cancer: No Hx Renal Failure: No - ENDOCRINE/METABOLIC Hx Endocrine Disorders: No Hx Adrenal Cancer: No Hx Diabetes Insipidus: No Hx Diabetes Mellitus Type 1: No Hx Diabetes Mellitus Type 2: No Hx Hyperthyroidism: No Hx Hypothyroidism: No Hx Systemic Lupus Erythematosus: No - HEMATOLOGICAL/ONCOLOGICAL Hx Cancer: No Hx Human Immunodeficiency Virus (HIV): No - INTEGUMENTARY Hx Dermatological Problems: No Hx Basil Cell: No Hx Eczema: No Hx Melanoma: No Hx Psoriasis: No Hx Squamous Cell: No - MUSCULOSKELETAL/RHEUMATOLOGICAL Hx Musculoskeletal Disorders: No Hx Arthritis: No Hx Back Pain: No Hx Degenerative Joint Disease: No Hx Falls: No Hx Fractures: No Hx Gout: No Hx Herniated Disk: No Hx Myasthenia Gravis: No Hx Osteoarthritis: No Hx Osteomyelitis: No Hx Osteoporosis: No Hx Rhabdomyolysis: No Hx Spinal Stenosis: No Hx Unsteady Gait: No - GASTROINTESTINAL Hx Gastrointestinal Disorders: No Hx Colostomy: No Hx Crohn's Disease: No Hx Diverticulitis: No Hx Gall Bladder Disease: No Hx Gastroesophageal Reflux: No Hx Ileostomy: No Hx Liver Failure: No Hx Pancreatitis: No HX Swallowing Problems: No - GENITOURINARY/GYNECOLOGICAL Hx Sexually Transmitted Disorders: No - PSYCHIATRIC Hx Anxiety: Yes Hx Substance Use: No - SURGICAL HISTORY Hx Amputation: No Hx Appendectomy: No Hx Cardiac Catheterization: No Hx Cholecystectomy: No Hx Coronary Stent: No Hx Gastric Bypass Surgery: No Hx Hysterectomy: No Hx Joint Replacement: No Hx Kidney Transplant: No Hx Liver Transplant: No Hx Mastectomy: No Hx Musculoskeletal Surgery: No Hx Open Heart Surgery: No Hx Orthopedic Surgery: No Hx Splenectomy: No Hx Valve Replacement: No Meds Allergies/Adverse Reactions: Allergies Allergy/AdvReac Type Severity Reaction Status Date / Time No Known Allergies Allergy Verified 08/06/17 01:48 - Medications Medications: Current Medications Alprazolam (Xanax) 0.25 mg PO DAILY STEPHEN PRN Reason: Protocol Stop: 08/13/17 08:01 Last Admin: 08/06/17 08:00 Dose: 0.25 mg Citalopram Hydrobromide (Celexa) 5 mg PO DAILY [facility] Last Admin: 08/06/17 09:39 Dose: 5 mg Diphenhydramine HCl (Benadryl) 12.5 mg PO HS PRN PRN Reason: Insomnia Last Admin: 08/06/17 00:56 Dose: 12.5 mg Nitrofurantoin Macrocrystals (Macrobid) 100 mg PO Q12 STEPHEN Last Admin: 08/06/17 07:03 Dose: 100 mg Risperidone (Risperdal Tab) 0.5 mg PO ONCE ONE PRN Reason: Protocol Stop: 08/06/17 21:31 Last Admin: 08/05/17 22:07 Dose: 0.5 mg Risperidone (Risperdal Tab) 0.25 mg PO DAILY STEPHEN PRN Reason: Protocol Last Admin: 08/06/17 08:00 Dose: 0.25 mg Risperidone (Risperdal Tab) 0.5 mg PO HS STEPHEN PRN Reason: Protocol Physical Exam - Constitutional Appears: Non-toxic, Confused Additional comments: Dementia with psychosis - Head Exam Head Exam: ATRAUMATIC - Eye Exam Pupil Exam: PERRL - Neck Exam Neck exam: Positive for: Normal Inspection - Respiratory Exam Respiratory Exam: Clear to Auscultation Bilateral, NORMAL BREATHING PATTERN - Cardiovascular Exam Cardiovascular Exam: REGULAR RHYTHM - GI/Abdominal Exam GI & Abdominal Exam: Normal Bowel Sounds, Soft Additional comments: no rebound, no gaurding, no abdominal discomfort - Extremities Exam Extremities exam: Positive for: normal inspection - Skin Skin Exam: Dry Results - Vital Signs Recent Vital Signs: Last Vital Signs Temp 98.3 F 08/06/17 00:47 Pulse 68 08/06/17 00:47 Resp 18 08/06/17 01:51 BP 165/97 H 08/06/17 00:47 Pulse Ox 100 08/06/17 00:47 - Labs Result Diagrams: 08/06/17 07:29 08/06/17 07:29 Labs: Laboratory Results - last 24 hr 08/06/17 08/06/17 08/06/17 07:29 07:29 07:29 WBC 3.7 L RBC 4.59 Hgb 13.0 Hct 38.4 MCV 83.7 MCH 28.3 MCHC 33.9 RDW 14.0 Plt Count 196 MPV 8.2 Sodium 141 Potassium 4.1 Chloride 107 Carbon Dioxide 24 Anion Gap 14 BUN 7 Creatinine 0.7 Est GFR ( Amer) > 60 Est GFR (Non-Af Amer) > 60 Random Glucose 84 Hemoglobin A1c 5.7 Calcium 9.2 Total Bilirubin 0.5 AST 26 ALT 33 Alkaline Phosphatase 96 Total Protein 6.6 Albumin 3.5 Globulin 3.1 Albumin/Globulin Ratio 1.2 Triglycerides 82 Cholesterol 191 LDL Cholesterol Direct 74 HDL Cholesterol 75 H Assessment & Plan - Assessment and Plan (Free Text) Assessment: A/P 87 yo admitted for severe abdominal pain due to constipation and suicidal gesture secondary to dementia with psychosis, found to have a 4x5 cm right ovarian cyst 1. Patient incidentally found to have a 4x5cm right ovarian cyst that looks to be simple in nature. No other suspicious findings found on U/S that warrant surgery intervention such as calcifications, septations, papillary excrescences , solid in appearance. Patient currently is asymptomatic, no abdominal pain on exam. A simple cyst such as this is appropriate to follow with U/S every 6-12 months to look for changes in appearance. No need for surgical intervention or urogynecology physician oncology consultation at this time. 2. Suggest patient could have a CA-125 drawn - it is a good predictor of postmenopausal epithelial ovarian malignancy. If over 35, urogynecology physician or urogynecology physician oncology should be re-consulted 3. Consult appreciated. Patient otherwise to be discharged when medically stable by attending - Date & Time Date: 08/06/17 Time: 16:15
--- NOTE | 2017-08-07 11:36 | PN ---
SUBJECTIVE: I saw the patient sitting out of bed to chair, eating her breakfast. She is in good spirits this morning, feeling better actually and I think mildly improved. MEDICATIONS: She is on Benadryl; Celexa; Macrobid, which I am going to stop; Risperdal; Xanax. PHYSICAL EXAMINATION VITAL SIGNS: She has 98.3 temperature, 68 pulse, 109/64 blood pressure, 18 respiratory rate and 100% O2 sat on room air. HEENT: Head is atraumatic and normocephalic. Throat is moist. NECK: Supple. HEART: Regular rate. LUNGS: Clear to auscultation. ABDOMEN: Soft, nontender, positive bowel sounds. EXTREMITIES: No edema. LABORATORY DATA: She had a lab test which showed 3.7 white count, 13 hemoglobin, 38.4 hematocrit with 196 platelets. Sodium 141, potassium 4.1, BUN 7, creatinine 0.7, GFR is greater than 60. Hemoglobin A1c is 5.7. Calcium is 9.2. Total bilirubin is 0.5. AST is 26, ALT is 33, alk phos is 96, total protein is 6.2, albumin is 3.5, globulin is 3.1. Triglycerides 82, cholesterol is 192, LDL is 74, HDL is high at 75 which is great, lipase is 132. Urine with moderate bacteria. Toxicology was positive for benzos, but the microbiology showed no growth in urine, I will stop the antibiotics. She was seen by [facility]. I will order CA125; otherwise, she has a simple cyst of the ovary. We will continue with the aggressive psychiatric care, which I think is starting to work. We will continue with aggressive care anyway on her for her change in mentation and she is here for suicidal thoughts and action, hypertension, ovarian cyst, UTI, abdominal pain. Addy Mtz DO
--- NOTE | 2017-08-07 15:46 | PCM.PYCHPN ---
Psychiatric Progress Note - Psychiatric Progress Note Patient seen today, length of contact: 30min Patient Chief Complaint: "I do believe in God, I want to get out of here as fast as possible" Medical Problems: multiple medical issues, please see medical team note for more detailed info Diagnostic Results: 08/06/17 07:29 08/06/17 07:29 Lab Results 08/06/17 07:29: Hemoglobin A1c 5.7 08/06/17 07:29: Sodium 141, Potassium 4.1, Chloride 107, Carbon Dioxide 24, Anion Gap 14, BUN 7, Creatinine 0.7, Est GFR ( Amer) > 60, Est GFR (Non- Af Amer) > 60, Random Glucose 84, Calcium 9.2, Total Bilirubin 0.5, AST 26, ALT 33, Alkaline Phosphatase 96, Total Protein 6.6, Albumin 3.5, Globulin 3.1, Albumin/Globulin Ratio 1.2, Triglycerides 82, Cholesterol 191, LDL Cholesterol Direct 74, HDL Cholesterol 75 H 08/06/17 07:29: WBC 3.7 L, RBC 4.59, Hgb 13.0, Hct 38.4, MCV 83.7, MCH 28.3, MCHC 33.9, RDW 14.0, Plt Count 196, MPV 8.2 08/05/17 20:10: Urine Opiates Screen Negative, Urine Methadone Screen Negative, Ur Barbiturates Screen Negative, Ur Phencyclidine Scrn Negative, Ur Amphetamines Screen Negative, U Benzodiazepines Scrn Positive H, U Oth Cocaine Metabols Negative, U Cannabinoids Screen Negative 08/05/17 20:10: Urine Color Yellow, Urine Appearance Clear, Urine pH 8.0, Ur Specific [place] 1.015, Urine Protein Negative, Urine Glucose (UA) Negative, Urine Ketones Negative, Urine Blood Negative, Urine Nitrate Negative, Urine Bilirubin Negative, Urine Urobilinogen 0.2, Ur Leukocyte Esterase Small H, Urine RBC 0 - 2, Urine WBC 0 - 2, Ur Epithelial Cells 1 - 3, Amorphous Sediment Moderate, Urine Bacteria Mod 08/05/17 19:55: Alcohol, Quantitative < 10 08/05/17 19:55: Salicylates < 1 L, Acetaminophen < 10.0 L 08/05/17 19:55: Sodium 139, Potassium 4.8, Chloride 105, Carbon Dioxide 26, Anion Gap 13, BUN 10, Creatinine 0.7, Est GFR ( Amer) > 60, Est GFR (Non- Af Amer) > 60, Random Glucose 87, Calcium 9.3, Total Bilirubin 0.7, AST 45 H, ALT 30, Alkaline Phosphatase 114, Total Protein 7.2, Albumin 4.0, Globulin 3.2, Albumin/Globulin Ratio 1.3, Lipase 132 08/05/17 18:30: WBC 3.7 L, RBC 4.68, Hgb 13.4, Hct 39.5, MCV 84.4, MCH 28.6, MCHC 33.9, RDW 14.1, Plt Count 222, MPV 8.9, Gran % 35.2 L, Lymph % (Auto) 55.1 H, [place] % (Auto) 8.3 H, Eos % (Auto) 1.1 L, Baso % (Auto) 0.3, Gran # 1.32 L, Lymph # 2.1, [place] # 0.3, Eos # 0.0, Baso # 0.01 Vital Signs Temp Pulse Resp BP Pulse Ox 08/07/17 07:00 98.3 F 68 17 102/58 L 08/06/17 16:07 65 109/64 08/06/17 01:51 18 08/06/17 00:47 98.3 F 68 18 165/97 H 100 08/05/17 23:13 72 18 138/88 100 08/05/17 17:28 99 F 66 16 145/76 100 USG ovarian cyst CA 125 was ordered DSM 5 Symptoms Update: 87-year-old female with h/o dementia with psychosis, one previous psych admission to this facility in 2013 under 's service, pt has POA pt's niece who sign consent for tx, pt was sent by [facility] s/p suicidal attempt, pt put a telephone cord around her neck, pt also has a lot of psychosomatic delusions about stomach cancer, multiple abdominal complaints. pt was seen by nurse gynecology team, was found to have ovarian cyst. pt was seen at her room. pt is disengaged, appears suspicious, guarded, pt said "I am leaving today, my niece is coming and I am leaving with her". pt is less somatic, but was refusing to take antibiotics for possible UTI "I do believe in God, I don't need to be on antibiotics". Depression: "I am very depressed". Temp Pulse Resp BP Pulse Ox 08/06/17 01:51 18 08/06/17 00:47 98.3 F 68 18 165/97 H 100 08/05/17 23:13 72 18 138/88 100 08/05/17 17:28 99 F 66 16 145/76 100 Review of Systems: see Medical consult. MSE: acceptable personal hygiene, poor ADLs. Pt looks stated age, very thin build AAF, there is some psychomotor retardation, speech was: underproductive, low volume, eye contact:intermittent, mood described: "I was feeling depressed" , affect: constricted, but was minimally reactive, mood congruent, thought process: goal directed, thought content: deneid SI/ HI at the moment of the interview, contracted for safety, pt has multiple somatic delusions, denied paranoid ideation, insight/judgment: limited , impulse control is unpredictable. Impression: as per h/o Alzheimer's dementia with psychosis as per h/o frontotemporal dementia as per h/o bipolar disorder. Plan: pt is on 1:1 for safety Milieu/structure/supportive therapy Medical consult appreciated, see medical team note for more detailed info SW consultation for discharge plan and social issues Med management celexa was started for depression meds resumed from the [place] xanax 0.25mg o daily as per [place] atorvastatin 20mg po daily as per [place] docusate 1cap bid as per [place] MVI po daily as per [place] risperidal 0.25mg po daily and 0.5mg po hs for psychosis Family involvement Follow up on labs Will monitor closely Pt was educated about risk/benefits and alternatives of medications, coping strategies (safety plan, suicide prevention), relapse prevention, importance of follow up with psychiatrist and therapist blood work for CA 125 was drawn, will f/u on result, to r/o malignancy Medication Change: Yes Medical Record Reviewed: Yes Consults ordered or reviewed: nurse gynecology consult appreciated: 1. CA-125 drawn - it is a good predictor of postmenopausal epithelial ovarian malignancy 2. A simple cyst such as this is appropriate to follow with U/S every 6-12 months to look for changes in appearance. No need for surgical intervention or nurse gynecology oncology consultation at this time. medical consult appreciated Mental Status Examination - Homicidal Ideation Homicidal Ideation: No Goal/Treatment Plan - Goal/Treatment Plan Need for Continued Stay: Remain at risks for inpatient hospitalization, Severe depression anxiety, Discharge may exacerbated symptoms, Severe functional impairment Estimated Date of D/C: 08/10/17
[2017-08-08] MEDS: Magnesium Hydroxide Susp 30 ml UD PO PRN (08:41)
--- NOTE | 2017-08-08 09:16 | PN ---
DATE: SUBJECTIVE: I saw her in the psychiatric floor. She is sort of constipated. Cannot go to the bathroom, but does not the medicine we are offering her for constipation. She is also telling me this morning that she has cancer everywhere. She is back to that again. She did that a few months back. MEDICATIONS: She is on Benadryl, Celexa, Colace, milk of magnesia, Risperdal, Tylenol, and Xanax. PHYSICAL EXAMINATION VITAL SIGNS: 98.2 temperature, 51 pulse, 116/60 blood pressure, 17 respirations rate. HEENT: Head is atraumatic, normocephalic. HEART: Regular rate. LUNGS: Clear to auscultation. ABDOMEN: Soft. Nontender. EXTREMITIES: No edema. She has medicine milk of magnesia, she has Colace; she has Fleet's Enema as needed for constipation. LABORATORY DATA: She has 3.7 white count, 13 hemoglobin, 196 platelets. She has 141 sodium, potassium 4.1, BUN 7, and creatinine 0.7. GFR is greater than 60. AST 26, ALT is 33, alkaline phosphatase 96. CA-125 antigen is 13, which is low. She has moderate bacteria. She is on her medication I discussed. Microbiology said no growth in the urine. She is off any antibiotics for the urine at this time and she had CAT scans of the head and abdomen and pelvis and a pelvis ultrasound and a transvaginal ultrasound. She did well for all the tests except for a cyst of the ovary. No cancer was found. I tried to explain it to her. We will continue with aggressive treatment care as per psychiatry. IMPRESSION AND PLAN: She was suicidal, depression. She has hypertension, ovarian cyst, abdominal pain, constipation. Continue with treatment and care. Addy Mtz DO
--- NOTE | 2017-08-08 14:22 | PCM.PYCHPN ---
Psychiatric Progress Note - Psychiatric Progress Note Patient seen today, length of contact: 30min Patient Chief Complaint: "...." Medical Problems: multiple medical issues, please see medical team note for more detailed info Diagnostic Results: 08/06/17 07:29 08/06/17 07:29 Lab Results 08/06/17 07:29: Hemoglobin A1c 5.7 08/06/17 07:29: Sodium 141, Potassium 4.1, Chloride 107, Carbon Dioxide 24, Anion Gap 14, BUN 7, Creatinine 0.7, Est GFR ( Amer) > 60, Est GFR (Non- Af Amer) > 60, Random Glucose 84, Calcium 9.2, Total Bilirubin 0.5, AST 26, ALT 33, Alkaline Phosphatase 96, Total Protein 6.6, Albumin 3.5, Globulin 3.1, Albumin/Globulin Ratio 1.2, Triglycerides 82, Cholesterol 191, LDL Cholesterol Direct 74, HDL Cholesterol 75 H 08/06/17 07:29: WBC 3.7 L, RBC 4.59, Hgb 13.0, Hct 38.4, MCV 83.7, MCH 28.3, MCHC 33.9, RDW 14.0, Plt Count 196, MPV 8.2 08/05/17 20:10: Urine Opiates Screen Negative, Urine Methadone Screen Negative, Ur Barbiturates Screen Negative, Ur Phencyclidine Scrn Negative, Ur Amphetamines Screen Negative, U Benzodiazepines Scrn Positive H, U Oth Cocaine Metabols Negative, U Cannabinoids Screen Negative 08/05/17 20:10: Urine Color Yellow, Urine Appearance Clear, Urine pH 8.0, Ur Specific [place] 1.015, Urine Protein Negative, Urine Glucose (UA) Negative, Urine Ketones Negative, Urine Blood Negative, Urine Nitrate Negative, Urine Bilirubin Negative, Urine Urobilinogen 0.2, Ur Leukocyte Esterase Small H, Urine RBC 0 - 2, Urine WBC 0 - 2, Ur Epithelial Cells 1 - 3, Amorphous Sediment Moderate, Urine Bacteria Mod 08/05/17 19:55: Alcohol, Quantitative < 10 08/05/17 19:55: Salicylates < 1 L, Acetaminophen < 10.0 L 08/05/17 19:55: Sodium 139, Potassium 4.8, Chloride 105, Carbon Dioxide 26, Anion Gap 13, BUN 10, Creatinine 0.7, Est GFR ( Amer) > 60, Est GFR (Non- Af Amer) > 60, Random Glucose 87, Calcium 9.3, Total Bilirubin 0.7, AST 45 H, ALT 30, Alkaline Phosphatase 114, Total Protein 7.2, Albumin 4.0, Globulin 3.2, Albumin/Globulin Ratio 1.3, Lipase 132 08/05/17 18:30: WBC 3.7 L, RBC 4.68, Hgb 13.4, Hct 39.5, MCV 84.4, MCH 28.6, MCHC 33.9, RDW 14.1, Plt Count 222, MPV 8.9, Gran % 35.2 L, Lymph % (Auto) 55.1 H, [place] % (Auto) 8.3 H, Eos % (Auto) 1.1 L, Baso % (Auto) 0.3, Gran # 1.32 L, Lymph # 2.1, [place] # 0.3, Eos # 0.0, Baso # 0.01 Vital Signs Temp Pulse Resp BP Pulse Ox 08/07/17 07:00 98.3 F 68 17 102/58 L 08/06/17 16:07 65 109/64 08/06/17 01:51 18 08/06/17 00:47 98.3 F 68 18 165/97 H 100 08/05/17 23:13 72 18 138/88 100 08/05/17 17:28 99 F 66 16 145/76 100 USG ovarian cyst CA 125 was ordered, WNL Laboratory Results - last 24 hr 08/07/17 09:59 CA 125 Antigen 13.0 DSM 5 Symptoms Update: 87-year-old female with h/o dementia with psychosis, one previous psych admission to this facility in 2013 under 's service, pt has POA pt's niece who sign consent for tx, pt was sent by [facility] s/p suicidal attempt, pt put a telephone cord around her neck, pt also has a lot of psychosomatic delusions about stomach cancer, multiple abdominal complaints. pt was seen by ventilating expert team, was found to have ovarian cyst. pt was seen at her room. pt is disengaged, appears apathetic, guarded, pt was not willing to talk to this publications writer, this publications writer educated pt about the result of her blood work CA 125 negative, pt was careless about it. as per sitter, pt ate earlier, but pt wanted to stay in bed after meds taken. pt c/o abdominal pain, pt was seen by medical team. Review of Systems: see Medical consult. MSE: acceptable personal hygiene, poor ADLs. Pt looks stated age, very thin build AAF, there is some psychomotor retardation, speech was: underproductive, low volume, eye contact:intermittent, mood described: ".....", affect: was flat today, thought process: goal directed, thought content: deneid SI/ HI at the moment of the interview, contracted for safety, pt has multiple somatic delusions, denied paranoid ideation, insight/judgment: limited , impulse control is unpredictable. Impression: as per h/o Alzheimer's dementia with psychosis as per h/o frontotemporal dementia as per h/o bipolar disorder. Plan: pt is on 1:1 for safety Milieu/structure/supportive therapy Medical consult appreciated, see medical team note for more detailed info SW consultation for discharge plan and social issues Med management celexa increased to 15mg daily for depression meds resumed from the [place] xanax 0.25mg o daily as per [place] atorvastatin 20mg po daily as per [place] docusate 1cap bid as per [place] MVI po daily as per [place] risperidal 0.25mg po daily and 0.5mg po hs for psychosis Family involvement Follow up on labs Will monitor closely Pt was educated about risk/benefits and alternatives of medications, coping strategies (safety plan, suicide prevention), relapse prevention, importance of follow up with psychiatrist and therapist blood work for CA 125 was drawn, will f/u on result, to r/o malignancy Medication Change: Yes (celexa increased) Medical Record Reviewed: Yes Mental Status Examination - Homicidal Ideation Homicidal Ideation: No Goal/Treatment Plan - Goal/Treatment Plan Need for Continued Stay: Remain at risks for inpatient hospitalization, Severe depression anxiety, Discharge may exacerbated symptoms, Severe functional impairment Estimated Date of D/C: 08/10/17
--- NOTE | 2017-08-09 10:13 | PN ---
DATE: SUBJECTIVE: I saw Alessandro Mello in bed 121 in the psychiatric floor. She wants to go home and she wants to go back for finance. She is eating somewhat better, stool is very strange. MEDICATIONS: She is on Benadryl, Celexa, Colace, milk of magnesia, Risperdal, Tylenol, and Xanax. PHYSICAL EXAMINATION VITAL SIGNS: 98.2 temperature, 56 pulse, 129/61 blood pressure, 17 respiratory rate. HEENT: Head is atraumatic and normocephalic. Throat is moist. NECK: Supple. HEART: Regular rate. LUNGS: Clear to auscultation. ABDOMEN: Soft. EXTREMITIES: No edema. She can walk with help. LABORATORY DATA: She has 3.7 white count, 13 hemoglobin, 196 platelets. SMA-12 was good. CA-125 was very good at 13. ASSESSMENT AND PLAN: She has suicidal thoughts, hypertension. She has an ovarian cyst. We will continue aggressive treatment and care as per psychiatry. We will follow. Addy Mtz DO
--- NOTE | 2017-08-09 14:59 | PCM.PYCHPN ---
Psychiatric Progress Note - Psychiatric Progress Note Patient seen today, length of contact: 30min Patient Chief Complaint: "it is okay that I don't have an ovarian cancer, but what is about stomach cancer?" Medical Problems: multiple medical issues, please see medical team note for more detailed info Diagnostic Results: 08/06/17 07:29 08/06/17 07:29 Lab Results 08/06/17 07:29: Hemoglobin A1c 5.7 08/06/17 07:29: Sodium 141, Potassium 4.1, Chloride 107, Carbon Dioxide 24, Anion Gap 14, BUN 7, Creatinine 0.7, Est GFR ( Amer) > 60, Est GFR (Non- Af Amer) > 60, Random Glucose 84, Calcium 9.2, Total Bilirubin 0.5, AST 26, ALT 33, Alkaline Phosphatase 96, Total Protein 6.6, Albumin 3.5, Globulin 3.1, Albumin/Globulin Ratio 1.2, Triglycerides 82, Cholesterol 191, LDL Cholesterol Direct 74, HDL Cholesterol 75 H 08/06/17 07:29: WBC 3.7 L, RBC 4.59, Hgb 13.0, Hct 38.4, MCV 83.7, MCH 28.3, MCHC 33.9, RDW 14.0, Plt Count 196, MPV 8.2 08/05/17 20:10: Urine Opiates Screen Negative, Urine Methadone Screen Negative, Ur Barbiturates Screen Negative, Ur Phencyclidine Scrn Negative, Ur Amphetamines Screen Negative, U Benzodiazepines Scrn Positive H, U Oth Cocaine Metabols Negative, U Cannabinoids Screen Negative 08/05/17 20:10: Urine Color Yellow, Urine Appearance Clear, Urine pH 8.0, Ur Specific [place] 1.015, Urine Protein Negative, Urine Glucose (UA) Negative, Urine Ketones Negative, Urine Blood Negative, Urine Nitrate Negative, Urine Bilirubin Negative, Urine Urobilinogen 0.2, Ur Leukocyte Esterase Small H, Urine RBC 0 - 2, Urine WBC 0 - 2, Ur Epithelial Cells 1 - 3, Amorphous Sediment Moderate, Urine Bacteria Mod 08/05/17 19:55: Alcohol, Quantitative < 10 08/05/17 19:55: Salicylates < 1 L, Acetaminophen < 10.0 L 08/05/17 19:55: Sodium 139, Potassium 4.8, Chloride 105, Carbon Dioxide 26, Anion Gap 13, BUN 10, Creatinine 0.7, Est GFR ( Amer) > 60, Est GFR (Non- Af Amer) > 60, Random Glucose 87, Calcium 9.3, Total Bilirubin 0.7, AST 45 H, ALT 30, Alkaline Phosphatase 114, Total Protein 7.2, Albumin 4.0, Globulin 3.2, Albumin/Globulin Ratio 1.3, Lipase 132 08/05/17 18:30: WBC 3.7 L, RBC 4.68, Hgb 13.4, Hct 39.5, MCV 84.4, MCH 28.6, MCHC 33.9, RDW 14.1, Plt Count 222, MPV 8.9, Gran % 35.2 L, Lymph % (Auto) 55.1 H, [place] % (Auto) 8.3 H, Eos % (Auto) 1.1 L, Baso % (Auto) 0.3, Gran # 1.32 L, Lymph # 2.1, [place] # 0.3, Eos # 0.0, Baso # 0.01 Vital Signs Temp Pulse Resp BP Pulse Ox 08/07/17 07:00 98.3 F 68 17 102/58 L 08/06/17 16:07 65 109/64 08/06/17 01:51 18 08/06/17 00:47 98.3 F 68 18 165/97 H 100 08/05/17 23:13 72 18 138/88 100 08/05/17 17:28 99 F 66 16 145/76 100 USG ovarian cyst CA 125 was ordered, WNL Laboratory Results - last 24 hr 08/07/17 09:59 CA 125 Antigen 13.0 Temp Pulse Resp BP Pulse Ox 98.2 F 56 L 17 129/61 100 08/09/17 07:00 08/09/17 07:00 08/09/17 07:00 08/09/17 07:00 08/06/17 00:47 DSM 5 Symptoms Update: 87-year-old female with h/o dementia with psychosis, one previous psych admission to this facility in 2013 under 's service, pt has POA pt's niece who sign consent for tx, pt was sent by [facility] s/p suicidal attempt, pt put a telephone cord around her neck, pt also has a lot of psychosomatic delusions about stomach cancer, multiple abdominal complaints. pt was seen by drain layer team, was found to have ovarian cyst. pt was seen at her room, seems to be in better spirit today, pt said that she does not have any pain today, pt said that she did not have a good day yesterday , this personal lines underwriter again explained the result of her blood work for CA 125 ? understanding. "it is okay that I don't have an ovarian cancer, but what is about stomach cancer?", pt is preoccupied with stomach cancer. Review of Systems: see Medical consult. MSE: acceptable personal hygiene, poor ADLs. Pt looks stated age, very thin build AAF, pt is more alert today, speech was: more productive, low volume, eye contact:intermittent, mood described: "I did not have a good day yesterday, but today I am better", affect: was flat today, thought process: goal directed, thought content: deneid SI/ HI at the moment of the interview, contracted for safety, pt has multiple somatic delusions, denied paranoid ideation (somatic delusions), insight/judgment: limited , impulse control is unpredictable. Impression: as per h/o Alzheimer's dementia with psychosis as per h/o frontotemporal dementia as per h/o bipolar disorder. Plan: pt is on 1:1 for safety Milieu/structure/supportive therapy Medical consult appreciated, see medical team note for more detailed info SW consultation for discharge plan and social issues Med management celexa 15mg daily for depression meds resumed from the [place] xanax 0.25mg o daily as per [place] atorvastatin 20mg po daily as per [place] docusate 1cap bid as per [place] MVI po daily as per [place] risperidal 0.25mg po daily and 0.5mg po hs for psychosis Family involvement Follow up on labs Will monitor closely Pt was educated about risk/benefits and alternatives of medications, coping strategies (safety plan, suicide prevention), relapse prevention, importance of follow up with psychiatrist and therapist blood work for CA 125 was drawn, will f/u on result, to r/o malignancy Medication Change: Yes (celexa increased ) Medical Record Reviewed: Yes Consults ordered or reviewed: drain layer consult appreciated: 1. CA-125 drawn - it is a good predictor of postmenopausal epithelial ovarian malignancy 2. A simple cyst such as this is appropriate to follow with U/S every 6-12 months to look for changes in appearance. No need for surgical intervention or drain layer oncology consultation at this time. medical consult appreciated Mental Status Examination - Homicidal Ideation Homicidal Ideation: No Goal/Treatment Plan - Goal/Treatment Plan Need for Continued Stay: Remain at risks for inpatient hospitalization, Severe depression anxiety, Discharge may exacerbated symptoms, Severe functional impairment Estimated Date of D/C: 08/13/17
--- NOTE | 2017-08-09 20:55 | CP.PCM.PN ---
Subjective - Date & Time of Evaluation Date of Evaluation: 08/09/17 Time of Evaluation: 20:52 - Subjective Subjective: Patient was seen because she complained of twisting of mouth. Has no other complaints. Had toothache earlier.No tooth ache now. 87 year old woman was admitted with complaint of abdominal pain , constipation , suicidal attempt. Has PMH of HLD, psychosis. Objective - Vital Signs/Intake and Output Vital Signs (last 24 hours): Temp Pulse Resp BP Pulse Ox 98.2 F 52 L 17 136/77 100 08/09/17 07:00 08/09/17 16:00 08/09/17 07:00 08/09/17 16:00 08/06/17 00:47 - Medications Medications: Current Medications Acetaminophen (Tylenol 325mg Tab) 650 mg PO Q6H PRN PRN Reason: Pain, moderate (4-7) Last Admin: 08/09/17 17:24 Dose: 650 mg Alprazolam (Xanax) 0.25 mg PO DAILY STEPHEN PRN Reason: Protocol Stop: 08/13/17 08:01 Last Admin: 08/09/17 09:16 Dose: 0.25 mg Citalopram Hydrobromide (Celexa) 15 mg PO DAILY STEPHEN Last Admin: 08/09/17 09:17 Dose: 15 mg Diphenhydramine HCl (Benadryl) 12.5 mg PO HS PRN PRN Reason: Insomnia Last Admin: 08/06/17 00:56 Dose: 12.5 mg Docusate Sodium (Colace) 100 mg PO BID STEPHEN Last Admin: 08/09/17 17:19 Dose: 100 mg Magnesium Hydroxide (Milk Of Magnesia) 30 ml PO DAILY PRN PRN Reason: Constipation Last Admin: 08/08/17 08:41 Dose: 30 ml Risperidone (Risperdal Tab) 0.25 mg PO DAILY STEPHEN PRN Reason: Protocol Last Admin: 08/09/17 09:17 Dose: 0.25 mg Risperidone (Risperdal Tab) 0.5 mg PO HS STEPHEN PRN Reason: Protocol Last Admin: 08/08/17 21:27 Dose: 0.5 mg - Labs Labs: 08/06/17 07:29 08/06/17 07:29 Micro Results 08/05/17 22:10 Urine,Clean Catch Urine Culture - Final No Growth (<1,000 CFU/ML) Most Recent Lab Values WBC 3.7 10^3/ul (4.5-11.0) L 08/06/17 07: RBC 4.59 10^6/uL (3.5-6.1) 08/06/17 07: Hgb 13.0 g/dL (12.0-16.0) 08/06/17: Hct 38.4 % (36.0-48.0) 08/06/17: MCV 83.7 fl (80.0-105.0) 08/06/17: MCH 28.3 pg (25.0-35.0) 08/06/17: MCHC 33.9 g/dl (31.0-37.0) 08/06/17: RDW 14.0 % (11.5-14.5) 08/06/17: Plt Count 196 10^3/uL (120.0-450.0) 08/06/17: MPV 8.2 fl (7.0-11.0) 08/06/17 07: Gran % 35.2 % (50.0-68.0) L 08/05/17 18:30 Lymph % (Auto) 55.1 % (22.0-35.0) H 08/05/17 18:30 [place] % (Auto) 8.3 % (1.0-6.0) H 08/05/17 18:30 Eos % (Auto) 1.1 % (1.5-5.0) L 08/05/17 18:30 Baso % (Auto) 0.3 % (0.0-3.0) 08/05/17 18:30 Gran # 1.32 (1.4-6.5) L 08/05/17 18:30 Lymph # 2.1 (1.2-3.4) 08/05/17 18: [place] # 0.3 (0.1-0.6) 08/05/17 18:30 Eos # 0.0 (0.0-0.7) 08/05/17 18: Baso # 0.01 K/mm3 (0.0-2.0) 08/05/17 18:30 Sodium 141 mmol/L (132-148) 08/06/17 07:29 Potassium 4.1 mmol/L (3.6-5.0) 08/06/17 07:29 Chloride 107 mmol/L (95-110) 08/06/17 07:29 Carbon Dioxide 24 mmol/L (21-33) 08/06/17 07:29 Anion Gap 14 (10-20) 08/06/17 07:29 BUN 7 mg/dL (7-21) 08/06/17 07:29 Creatinine 0.7 mg/dL (0.5-1.4) 08/06/17 07:29 Est GFR ( Amer) > 60 08/06/17 07:29 Est GFR (Non-Af Amer) > 60 08/06/17 07:29 Random Glucose 84 mg/dL (70-110) 08/06/17 07:29 Hemoglobin A1c 5.7 % (4.2-6.5) 08/06/17 07:29 Calcium 9.2 mg/dL (8.4-10.5) 08/06/17 07:29 Total Bilirubin 0.5 mg/dL (0.2-1.3) 08/06/17 07:29 AST 26 U/L (14-36) 08/06/17 07:29 ALT 33 U/L (7-56) 08/06/17 07:29 Alkaline Phosphatase 96 U/L (38-126) 08/06/17 07:29 Total Protein 6.6 g/dL (5.8-8.3) 08/06/17 07:29 Albumin 3.5 g/dL (3.0-4.8) 08/06/17 07:29 Globulin 3.1 gm/dL 08/06/17 07:29 Albumin/Globulin Ratio 1.2 (1.1-1.8) 08/06/17 07:29 Triglycerides 82 mg/dL (35-160) 08/06/17 07:29 Cholesterol 191 mg/dL (130-200) 08/06/17 07:29 LDL Cholesterol Direct 74 mg/dL (0-129) 08/06/17 07:29 HDL Cholesterol 75 mg/dL (29-60) H 08/06/17 07:29 Lipase 132 U/L (23-300) 08/05/17 19:55 CA 125 Antigen 13.0 U/mL (0-35) 08/07/17 09:59 Urine Color Yellow (YELLOW) 08/05/17 20:10 Urine Appearance Clear (CLEAR) 08/05/17 20:10 Urine pH 8.0 (4.7-8.0) 08/05/17 20:10 Ur Specific [place] 1.015 (1.005-1.035) 08/05/17 20:10 Urine Protein Negative mg/dL (<30 mg/dL) 08/05/17 20:10 Urine Glucose (UA) Negative mg/dL (NEGATIVE) 08/05/17 20:10 Urine Ketones Negative mg/dL (NEGATIVE) 08/05/17 20:10 Urine Blood Negative (NEGATIVE) 08/05/17 20:10 Urine Nitrate Negative (NEGATIVE) 08/05/17 20:10 Urine Bilirubin Negative (NEGATIVE) 08/05/17 20:10 Urine Urobilinogen 0.2 E.U./dL (<1 E.U./dL) 08/05/17 20:10 Ur Leukocyte Esterase Small Edu[place]/uL (NEGATIVE) H 08/05/17 20:10 Urine RBC 0 - 2 /hpf (0-2) 08/05/17 20:10 Urine WBC 0 - 2 /hpf (0-6) 08/05/17 20:10 Ur Epithelial Cells 1 - 3 /hpf (0-5) 08/05/17 20:10 Amorphous Sediment Moderate 08/05/17 20:10 Urine Bacteria Mod (NEG) 08/05/17 20:10 Salicylates < 1 mg/dL (2.0-20.0) L 08/05/17 19:55 Urine Opiates Screen Negative (NEGATIVE) 08/05/17 20:10 Urine Methadone Screen Negative (NEGATIVE) 08/05/17 20:10 Acetaminophen < 10.0 ug/ml (10.0-20.0) L 08/05/17 19:55 Ur Barbiturates Screen Negative (NEGATIVE) 08/05/17 20:10 Ur Phencyclidine Scrn Negative (NEGATIVE) 08/05/17 20:10 Ur Amphetamines Screen Negative (NEGATIVE) 08/05/17 20:10 U Benzodiazepines Scrn Positive (NEGATIVE) H 08/05/17 20:10 U Oth Cocaine Metabols Negative (NEGATIVE) 08/05/17 20:10 U Cannabinoids Screen Negative (NEGATIVE) 08/05/17 20:10 Alcohol, Quantitative < 10 mg/dL (0-10) 08/05/17 19:55 - Constitutional Appears: Well, No Acute Distress - Head Exam Head Exam: ATRAUMATIC, NORMAL INSPECTION, NORMOCEPHALIC - Eye Exam Eye Exam: Normal appearance - ENT Exam ENT Exam: Normal External Ear Exam - Neck Exam Neck Exam: Normal Inspection - Respiratory Exam Respiratory Exam: NORMAL BREATHING PATTERN - Cardiovascular Exam Cardiovascular Exam: absent: JVD - GI/Abdominal Exam GI & Abdominal Exam: absent: Distended - Rectal Exam Rectal Exam: Deferred - Exam Additional comments: Deferred. - Extremities Exam Extremities Exam: Normal Inspection - Back Exam Back Exam: NORMAL INSPECTION - Neurological Exam Neurological Exam: Alert, Oriented x3 Neuro motor strength exam: Left Upper Extremity: 5, Right Upper Extremity: 5, Left Lower Extremity: 5, Right Lower Extremity: 5 Additional comments: Left facial naso labial fold is little prominent . No facial droop noted. - Psychiatric Exam Psychiatric exam: Normal Affect, Normal Mood - Skin Skin Exam: Normal Color Assessment and Plan - Assessment and Plan (Free Text) Assessment: Complaint of twisting of mouth. Suicidal. History psychosis. History hypercholesterolemia. Plan: ASA 324 mg PO stat. Neurocheck q2h x 24 hours. Monitor. Discussed with . Continue present management.
[2017-08-10] MEDS: DiphenhydrAMINE 12.5 mg/5 ml LIQ UD (5 ml) PO PRN (06:13)
--- NOTE | 2017-08-10 13:59 | PN ---
DATE: 08/10/2017 SUBJECTIVE: I saw her resting comfortably in bed this morning. She slept fairly well. She is still on one-to-one. I understand that. The other day, she had an evaluation per the house doctor due to twisting of her mouth, which eventually disappeared. She does not have that now. There are no complaints this morning. She slept fairly well. She is hungry. PHYSICAL EXAMINATION VITAL SIGNS: Vital signs, 98.2 temperature, 52 pulse, 129/61 blood pressure, and 17 respiratory rate. HEENT: Head is atraumatic and normocephalic. Throat is moist. NECK: Supple. HEART: Regular rate. LUNGS: Clear to auscultation. ABDOMEN: Soft. EXTREMITIES: No edema. MEDICATIONS: She is currently on Benadryl, Celexa, Colace, milk of magnesia, Risperdal, Tylenol, and Xanax. LABORATORY DATA: Last labs on the and 08/06/2017 were very good. She did have CAT scans, which were normal, ultrasounds, which were normal. She has multiple issues with Alzheimer's with psychosis, bipolar. She does have suicidal ideation, hypertension, and depression. We will continue aggressive treatment and care as per psychiatry before she will go back to [facility] where she is a permanent resident. She also has a ovarian cyst. No changes. We will follow. Addy Mtz DO
--- NOTE | 2017-08-10 15:35 | PCM.PYCHPN ---
Psychiatric Progress Note - Psychiatric Progress Note Patient seen today, length of contact: 30min Patient Chief Complaint: "when I will go home?" Medical Problems: multiple medical issues, please see medical team note for more detailed info Diagnostic Results: 08/06/17 07:29 08/06/17 07:29 Lab Results 08/06/17 07:29: Hemoglobin A1c 5.7 08/06/17 07:29: Sodium 141, Potassium 4.1, Chloride 107, Carbon Dioxide 24, Anion Gap 14, BUN 7, Creatinine 0.7, Est GFR ( Amer) > 60, Est GFR (Non- Af Amer) > 60, Random Glucose 84, Calcium 9.2, Total Bilirubin 0.5, AST 26, ALT 33, Alkaline Phosphatase 96, Total Protein 6.6, Albumin 3.5, Globulin 3.1, Albumin/Globulin Ratio 1.2, Triglycerides 82, Cholesterol 191, LDL Cholesterol Direct 74, HDL Cholesterol 75 H 08/06/17 07:29: WBC 3.7 L, RBC 4.59, Hgb 13.0, Hct 38.4, MCV 83.7, MCH 28.3, MCHC 33.9, RDW 14.0, Plt Count 196, MPV 8.2 08/05/17 20:10: Urine Opiates Screen Negative, Urine Methadone Screen Negative, Ur Barbiturates Screen Negative, Ur Phencyclidine Scrn Negative, Ur Amphetamines Screen Negative, U Benzodiazepines Scrn Positive H, U Oth Cocaine Metabols Negative, U Cannabinoids Screen Negative 08/05/17 20:10: Urine Color Yellow, Urine Appearance Clear, Urine pH 8.0, Ur Specific [place] 1.015, Urine Protein Negative, Urine Glucose (UA) Negative, Urine Ketones Negative, Urine Blood Negative, Urine Nitrate Negative, Urine Bilirubin Negative, Urine Urobilinogen 0.2, Ur Leukocyte Esterase Small H, Urine RBC 0 - 2, Urine WBC 0 - 2, Ur Epithelial Cells 1 - 3, Amorphous Sediment Moderate, Urine Bacteria Mod 08/05/17 19:55: Alcohol, Quantitative < 10 08/05/17 19:55: Salicylates < 1 L, Acetaminophen < 10.0 L 08/05/17 19:55: Sodium 139, Potassium 4.8, Chloride 105, Carbon Dioxide 26, Anion Gap 13, BUN 10, Creatinine 0.7, Est GFR ( Amer) > 60, Est GFR (Non- Af Amer) > 60, Random Glucose 87, Calcium 9.3, Total Bilirubin 0.7, AST 45 H, ALT 30, Alkaline Phosphatase 114, Total Protein 7.2, Albumin 4.0, Globulin 3.2, Albumin/Globulin Ratio 1.3, Lipase 132 08/05/17 18:30: WBC 3.7 L, RBC 4.68, Hgb 13.4, Hct 39.5, MCV 84.4, MCH 28.6, MCHC 33.9, RDW 14.1, Plt Count 222, MPV 8.9, Gran % 35.2 L, Lymph % (Auto) 55.1 H, [place] % (Auto) 8.3 H, Eos % (Auto) 1.1 L, Baso % (Auto) 0.3, Gran # 1.32 L, Lymph # 2.1, [place] # 0.3, Eos # 0.0, Baso # 0.01 Vital Signs Temp Pulse Resp BP Pulse Ox 08/07/17 07:00 98.3 F 68 17 102/58 L 08/06/17 16:07 65 109/64 08/06/17 01:51 18 08/06/17 00:47 98.3 F 68 18 165/97 H 100 08/05/17 23:13 72 18 138/88 100 08/05/17 17:28 99 F 66 16 145/76 100 USG ovarian cyst CA 125 was ordered, WNL Laboratory Results - last 24 hr 08/07/17 09:59 CA 125 Antigen 13.0 Temp Pulse Resp BP Pulse Ox 98.2 F 56 L 17 129/61 100 08/09/17 07:00 08/09/17 07:00 08/09/17 07:00 08/09/17 07:00 08/06/17 00:47 Temp Pulse Resp BP Pulse Ox 98.2 F 52 L 17 136/77 100 08/09/17 07:00 08/09/17 16:00 08/09/17 07:00 08/09/17 16:00 08/06/17 00:47 DSM 5 Symptoms Update: 87-year-old female with h/o dementia with psychosis, one previous psych admission to this facility in 2013 under 's service, pt has POA pt's niece who sign consent for tx, pt was sent by [facility] s/p suicidal attempt, pt put a telephone cord around her neck, pt also has a lot of psychosomatic delusions about stomach cancer, multiple abdominal complaints. pt was seen by dynamometer tuner team, was found to have ovarian cyst. over night pt was seen by medical team because of "twisting mouth", this proposal lead writer cannot exclude that this is EPS, will d/c risperdal because it is high potency medication, will start seroquel. pt has some lip smacking movements but it could be related to the fact that pt does not wear dentures. pt was seen in her room, seems to be depressed, irritable, said that she does not feel well, pt is not socializing with others, staying in her room most of the times, pt still preoccupied with stomach cancer (no evidence for that), yesterday pt was educated about her lab result negative for CA 125, but it is ? understanding. "it is okay that I don't have an ovarian cancer, but what is about stomach cancer?". Review of Systems: see Medical consult. MSE: acceptable personal hygiene, poor ADLs. Pt looks stated age, very thin build AAF, pt is more alert today, speech was: more productive, low volume, eye contact:intermittent, mood described: "I do not feel good today", affect: was flat today, thought process: goal directed, thought content: deneid SI/ HI at the moment of the interview, contracted for safety, pt has multiple somatic delusions, denied paranoid ideation (somatic delusions), insight/judgment: limited , impulse control is unpredictable. Impression: as per h/o Alzheimer's dementia with psychosis as per h/o frontotemporal dementia as per h/o bipolar disorder. Plan: pt is on 1:1 for safety Milieu/structure/supportive therapy Medical consult appreciated, see medical team note for more detailed info SW consultation for discharge plan and social issues Med management celexa 15mg daily for depression meds resumed from the [place] xanax 0.25mg o daily as per [place] atorvastatin 20mg po daily as per [place] docusate 1cap bid as per [place] MVI po daily as per [place] risperidal d/c seroquel started 12.5mg amhs for psychosis Family involvement Follow up on labs Will monitor closely Pt was educated about risk/benefits and alternatives of medications, coping strategies (safety plan, suicide prevention), relapse prevention, importance of follow up with psychiatrist and therapist blood work for CA 125 was drawn, will f/u on result, to r/o malignancy Medication Change: Yes (risperdal d/c, seroquel started) Medical Record Reviewed: Yes Mental Status Examination - Homicidal Ideation Homicidal Ideation: No Goal/Treatment Plan - Goal/Treatment Plan Need for Continued Stay: Remain at risks for inpatient hospitalization, Severe depression anxiety, Discharge may exacerbated symptoms, Severe functional impairment Estimated Date of D/C: 08/13/17
--- NOTE | 2017-08-11 08:50 | PCM.PYCHPN ---
Psychiatric Progress Note - Psychiatric Progress Note Patient seen today, length of contact: 25 min Patient Chief Complaint: "I don't know" Problems Identified/Issues Discussed: I reviewed assessment and recent notes. I met with patient at bedside. She appears withdrawn and preoccupied. Patient is disoriented and only aware of current month. Indicates that she doesn't know how she feels or if she has hallucinations. Denies current discomfort or pain. Staff notes indicate that patient has been disoriented and irritable on the unit. Refuses to join group but generally manageable. There were no behavioral issues overnight Diagnostic Results: as per h/o Alzheimer's dementia with psychosis as per h/o frontotemporal dementia as per h/o bipolar disorder. Medication Change: No ( ) Medical Record Reviewed: Yes Mental Status Examination - Cognitive Function Attention: Poor Concentration: Poor Association: Loose Fund of Knowledge: Poor - Mood Mood: Other ("I dont know") - Affect Affect: Constricted - Speech Speech: Soft - Formal Thought Process Formal Thought Process: Loosening of associations - Suicidal Ideation Suicidal Ideation: No - Homicidal Ideation Homicidal Ideation: No Goal/Treatment Plan - Goal/Treatment Plan Need for Continued Stay: Remain at risks for inpatient hospitalization, Severe depression anxiety, Discharge may exacerbated symptoms, Severe functional impairment Progress Toward Problem(s) and Goals/Treatment Plan: * c/w current tx and plan * No new weekend labs * Vitals reviewed and noted below: Selected Entries 08/09/17 08/09/17 08/10/17 07:00 16:00 07:00 Temperature 98.2 F 97.6 F Pulse Rate 56 L 52 L 66 Respiratory 17 18 Rate Blood Pressure 129/61 136/77 130/78 08/10/17 15:00 Temperature Pulse Rate 61 Respiratory Rate Blood Pressure 140/82 Estimated Date of D/C: 08/13/17
--- NOTE | 2017-08-11 12:09 | PN ---
DATE: SUBJECTIVE: Ms. Padron in her bed this morning. She ate her breakfast. The nurse states she still has 1 to 1. She is not talking to me this morning. She does it some time to time when she gets aggravated, upset. I believe she wants to back to [facility] where she is from and I do not think psychiatrist feels that she is ready yet. She is on Benadryl, Celexa, Colace, milk of magnesia, Risperdal, Seroquel, Tylenol and Xanax. PHYSICAL EXAMINATION VITAL SIGNS: 97 temperature, 59 pulse, 139/70 blood pressure,17 respiratory rate. HEENT: Head is atraumatic, normocephalic. HEART: Regular rate. LUNGS: Clear to auscultation. ABDOMEN: Soft. EXTREMITIES: No edema. ASSESSMENT AND PLAN: She is [facility], depression, bipolar, Alzheimer's. She has ovarian cyst, hypertension. Hopefully, she will continue to improve as per psychiatry and we will follow. Addy Mtz DO
[2017-08-12 08:13] VITALS: RESP 18
--- NOTE | 2017-08-12 08:58 | PCM.PYCHPN ---
Psychiatric Progress Note - Psychiatric Progress Note Patient seen today, length of contact: 25 min Patient Chief Complaint: "depressed" Problems Identified/Issues Discussed: I reviewed recent notes and met with patient at bedside. She still appears withdrawn and preoccupied. Patient is disoriented and only aware that she is in a hospital. Indicates that she is depressed, denies hopelessness or SI. She denies hallucinations. "Doesn't know" if she has side effects from her medications. She denies current discomfort or pain. Staff notes indicate the patient has been disoriented and a little irritable on the unit. Still refusing to join groups but generally manageable. There were no behavioral issues over the weekend thus far. Diagnostic Results: as per h/o Alzheimer's dementia with psychosis as per h/o frontotemporal dementia as per h/o bipolar disorder. Medication Change: No ( ) Medical Record Reviewed: Yes Mental Status Examination - Cognitive Function Attention: Poor Concentration: Poor Association: Loose Fund of Knowledge: Poor - Mood Mood: Depressed, Other ("I dont know") - Affect Affect: Constricted - Speech Speech: Soft - Formal Thought Process Formal Thought Process: Loosening of associations - Suicidal Ideation Suicidal Ideation: No - Homicidal Ideation Homicidal Ideation: No Goal/Treatment Plan - Goal/Treatment Plan Need for Continued Stay: Remain at risks for inpatient hospitalization, Severe depression anxiety, Discharge may exacerbated symptoms, Severe functional impairment Progress Toward Problem(s) and Goals/Treatment Plan: * c/w current tx and plan * No new weekend labs * Appreciate f/u by Dr. Mtz on 08/11/17~no new recommendations * Vitals reviewed and noted below: Selected Entries 08/11/17 08/11/17 07:07 16:00 Temperature 97 F L Pulse Rate 59 L 60 Respiratory 17 Rate Blood Pressure 139/70 144/66 Estimated Date of D/C: 08/13/17
--- NOTE | 2017-08-12 12:38 | PN ---
SUBJECTIVE: I saw the patient in the psychiatric floor with one-to-one. She is in her bed. She slept fairly well. She is not hungry yet, but she will eat, talking a little bit more today, gets occasional stomach upset. She is on Benadryl, Celexa, Colace, milk of magnesia, Risperdal, Seroquel, Tylenol and Xanax. PHYSICAL EXAMINATION: VITAL SIGNS: 98.4 temperature, 61 pulse, 108/55 blood pressure,18 respiratory rate. HEENT: Head is atraumatic, normocephalic. HEART: Regular rate. LUNGS: Clear to auscultation. ABDOMEN: Soft. EXTREMITIES: No edema. ASSESSMENT AND PLAN: She is here for a few reasons. She had suicidal ideation, depression, ovarian cyst, with abdominal pain and hypertension. I encouraged her to continue taking her medications to the best she can, participating in groups as best as can and we will follow. Hopefully, in the next few days, she can get back to [facility] and will continue treatment there. Discussed with the nurse. Addy Mtz DO
[2017-08-13] MEDS: Magnesium Hydroxide Susp 30 ml UD PO PRN (03:15)
--- NOTE | 2017-08-13 13:08 | PCM.BM ---
<Jevon Cuevas - Last Filed: 08/13/17 13:07> Treatment Plan Problems - Problems identified on initial assessmt suicidal ideation Date Initiated: 08/05/17 Time Initiated: 01:25 Date resolved: 08/13/17 Assessment reference: NA Status: Active Priority: 5 Depression Date Initiated: 08/06/17 Time Initiated: 12:37 Assessment reference: NA Status: Active Priority: 1 Hopelessness Date Initiated: 08/06/17 Time Initiated: 12:37 Date resolved: 08/13/17 Assessment reference: NA Status: Active Priority: 2 Ineffective Coping Date Initiated: 08/06/17 Time Initiated: 12:38 Date resolved: 08/13/17 Assessment reference: NA Status: Active Priority: 3 Altered Thought Process Date Initiated: 08/06/17 Time Initiated: 12:38 Assessment reference: NA Status: Active Priority: 4 Treatment assets and liabiliti Patient Assests: ADL independent, negotiates basic needs Patient Liabilities: imparied memory - Milieu Protocol Maintain good personal hygiene: daily Encourage regular showers, daily Remind patient to perform daily oral care, daily Assist patient to perform ADL's Maintain personal safety: daily Educate patient to report safety concerns to staff, daily Monitor environment for contraband/sharps Medication safety: Monitor for expected outcome, potential side effects: daily, Assess barriers to learning: daily, Assess readiness for medication education: daily Milieu Narrative: * c/w current tx and plan * No new weekend labs * Appreciate f/u by Dr. Mtz on 08/11/17~no new recommendations * Vitals reviewed and noted below: Selected Entries 08/11/17 08/11/17 07:07 16:00 Temperature 97 F L Pulse Rate 59 L 60 Respiratory 17 Rate Blood Pressure 139/70 144/66 Family Contact Family involvement: Family/SO is involved Family contact: Patient agrees to contact - Outside Agency [facility] Care involvment: Information-sharing - Goals for Treatment Patient goals for treatment: I want to be able to go to the bathroom Discharge/Continuing Care - Education Needs Education Needs: Patient Medication, Patient Diagnosis/Disease Process, Patient Coping Skills, Patient Anger Management skills, Patient Placement options, Patient Activities of Daily Living, Patient Pain, Patient Health Practices/ Safety, Patient Personal Hygiene/Grooming, Patient Aftercare Safety Plan - Discharge Discharge Criteria: Free of Suicidal thoughts, Free of agitation, Normal sleep pattern - Treatment Team Participation Patient/Family/SO Statement: * c/w current tx and plan * No new weekend labs * Appreciate f/u by Dr. Mtz on 08/11/17~no new recommendations * Vitals reviewed and noted below: Selected Entries 08/11/17 08/11/17 07:07 16:00 Temperature 97 F L Pulse Rate 59 L 60 Respiratory 17 Rate Blood Pressure 139/70 144/66 Treatment Plan Review - Problem suicidal ideation Time Initiated: 01:25 Depression Time Initiated: 12:37 Hopelessness Time Initiated: 12:37 Ineffective Coping Time Initiated: 12:38 Altered Thought Process Time Initiated: 12:38 <Yanelis Bentley - Last Filed: 08/13/17 15:16> - Diagnosis (1) Somatic delusion Status: Acute Interventions: 08/13/17 15:14 better, pt is aware of her medical condition, pt does not have any somatic delusions (2) MDD (major depressive disorder) Status: Acute Interventions: 08/13/17 15:15 pt still depressed, but denied thoughts of harming self or others. (3) Dementia Status: Acute Interventions: 08/13/17 15:15 same
--- NOTE | 2017-08-13 14:23 | PN ---
SUBJECTIVE: I saw the patient standing in her room with caregiver there at that time. She is on one-to-one, but she is standing and walking slow but doing okay, talking to me this morning which is better. She had some abdominal pain. When I poked on her belly, it was fine, soft, and nontender. Positive bowel sounds. No guarding, no rebound, no CVA tenderness, that is good. She is hungry. She is going to go for breakfast. She is on Benadryl, Celexa, Colace, milk of magnesia, Risperdal, Seroquel, and Tylenol. PHYSICAL EXAMINATION: VITAL SIGNS: 98.4 temperature, 67 pulse, 133/65 blood pressure, and 18 respiratory rate. HEENT: Head is atraumatic and normocephalic. HEART: Regular rate. LUNGS: Clear to auscultation. ABDOMEN: Soft as described above. EXTREMITIES: No edema. MEDICATION: She is currently on Benadryl, Celexa, Colace, milk of magnesia, Risperdal, Seroquel, and Tylenol. I do think she is slowly improving as per psychiatry treatment. Continue as per psychiatry. She had suicidal ideation; depression; ovarian cyst; abdominal pain, on and off, could be just to get attention, because after she said that to me and I poked around, she had no more pain; and hypertension. Continue aggressive treatment and care as per psychiatry, so we can take her back to [facility]. Addy Mtz DO
--- NOTE | 2017-08-13 15:24 | PCM.PYCHPN ---
Psychiatric Progress Note - Psychiatric Progress Note Patient seen today, length of contact: 30min Patient Chief Complaint: "I feel fine..." Medical Problems: multiple medical issues, please see medical team note for more detailed info Diagnostic Results: 08/06/17 07:29 08/06/17 07:29 Lab Results 08/06/17 07:29: Hemoglobin A1c 5.7 08/06/17 07:29: Sodium 141, Potassium 4.1, Chloride 107, Carbon Dioxide 24, Anion Gap 14, BUN 7, Creatinine 0.7, Est GFR ( Amer) > 60, Est GFR (Non- Af Amer) > 60, Random Glucose 84, Calcium 9.2, Total Bilirubin 0.5, AST 26, ALT 33, Alkaline Phosphatase 96, Total Protein 6.6, Albumin 3.5, Globulin 3.1, Albumin/Globulin Ratio 1.2, Triglycerides 82, Cholesterol 191, LDL Cholesterol Direct 74, HDL Cholesterol 75 H 08/06/17 07:29: WBC 3.7 L, RBC 4.59, Hgb 13.0, Hct 38.4, MCV 83.7, MCH 28.3, MCHC 33.9, RDW 14.0, Plt Count 196, MPV 8.2 08/05/17 20:10: Urine Opiates Screen Negative, Urine Methadone Screen Negative, Ur Barbiturates Screen Negative, Ur Phencyclidine Scrn Negative, Ur Amphetamines Screen Negative, U Benzodiazepines Scrn Positive H, U Oth Cocaine Metabols Negative, U Cannabinoids Screen Negative 08/05/17 20:10: Urine Color Yellow, Urine Appearance Clear, Urine pH 8.0, Ur Specific [place] 1.015, Urine Protein Negative, Urine Glucose (UA) Negative, Urine Ketones Negative, Urine Blood Negative, Urine Nitrate Negative, Urine Bilirubin Negative, Urine Urobilinogen 0.2, Ur Leukocyte Esterase Small H, Urine RBC 0 - 2, Urine WBC 0 - 2, Ur Epithelial Cells 1 - 3, Amorphous Sediment Moderate, Urine Bacteria Mod 08/05/17 19:55: Alcohol, Quantitative < 10 08/05/17 19:55: Salicylates < 1 L, Acetaminophen < 10.0 L 08/05/17 19:55: Sodium 139, Potassium 4.8, Chloride 105, Carbon Dioxide 26, Anion Gap 13, BUN 10, Creatinine 0.7, Est GFR ( Amer) > 60, Est GFR (Non- Af Amer) > 60, Random Glucose 87, Calcium 9.3, Total Bilirubin 0.7, AST 45 H, ALT 30, Alkaline Phosphatase 114, Total Protein 7.2, Albumin 4.0, Globulin 3.2, Albumin/Globulin Ratio 1.3, Lipase 132 08/05/17 18:30: WBC 3.7 L, RBC 4.68, Hgb 13.4, Hct 39.5, MCV 84.4, MCH 28.6, MCHC 33.9, RDW 14.1, Plt Count 222, MPV 8.9, Gran % 35.2 L, Lymph % (Auto) 55.1 H, [place] % (Auto) 8.3 H, Eos % (Auto) 1.1 L, Baso % (Auto) 0.3, Gran # 1.32 L, Lymph # 2.1, [place] # 0.3, Eos # 0.0, Baso # 0.01 Vital Signs Temp Pulse Resp BP Pulse Ox 08/07/17 07:00 98.3 F 68 17 102/58 L 08/06/17 16:07 65 109/64 08/06/17 01:51 18 08/06/17 00:47 98.3 F 68 18 165/97 H 100 08/05/17 23:13 72 18 138/88 100 08/05/17 17:28 99 F 66 16 145/76 100 USG ovarian cyst CA 125 was ordered, WNL Laboratory Results - last 24 hr 08/07/17 09:59 CA 125 Antigen 13.0 Temp Pulse Resp BP Pulse Ox 98.2 F 56 L 17 129/61 100 08/09/17 07:00 08/09/17 07:00 08/09/17 07:00 08/09/17 07:00 08/06/17 00:47 Temp Pulse Resp BP Pulse Ox 98.2 F 52 L 17 136/77 100 08/09/17 07:00 08/09/17 16:00 08/09/17 07:00 08/09/17 16:00 08/06/17 00:47 Temp Pulse Resp BP Pulse Ox 98.4 F 67 18 133/65 100 08/12/17 07:00 08/12/17 16:00 08/12/17 07:00 08/12/17 16:00 08/06/17 00:47 DSM 5 Symptoms Update: 87-year-old female with h/o dementia with psychosis, one previous psych admission to this facility in 2013 under 's service, pt has POA pt's niece who sign consent for tx, pt was sent by [facility] s/p suicidal attempt, pt put a telephone cord around her neck, pt also has a lot of psychosomatic delusions about stomach cancer, multiple abdominal complaints. pt was seen by [facility] team, was found to have ovarian cyst. last week pt c/o of "twisting mouth", risperdal was d/c, seroquel started, pt tolerated it well. pt was seen today at the dinning area, first time for the past week pt was seen at the dinning area, pt's hygiene is better, pt is more talkative. no delusions or hallucinations, as per RN report pt could be irritable at times , but no behavioral issues. MSE: acceptable personal hygiene, poor ADLs. Pt looks stated age, very thin build AAF, pt is more alert today, more talkative. eye contact:intermittent, mood described: " am okay", affect: was flat today, thought process: goal directed, thought content: denied SI/ HI at the moment of the interview, contracted for safety, somatic delusions are improved, denied paranoid ideation improved insight/judgment, impulses are well controlled Impression: as per h/o Alzheimer's dementia with psychosis as per h/o frontotemporal dementia as per h/o bipolar disorder. Plan: pt is on 1:1 for safety Milieu/structure/supportive therapy Medical consult appreciated, see medical team note for more detailed info SW consultation for discharge plan and social issues Med management celexa 20mg daily for depression meds resumed from the [place] xanax 0.25mg o daily as per [place] atorvastatin 20mg po daily as per [place] docusate 1cap bid as per [place] MVI po daily as per [place] risperidal d/c seroquel started 50mg amhs for psychosis Family involvement Follow up on labs Will monitor closely Pt was educated about risk/benefits and alternatives of medications, coping strategies (safety plan, suicide prevention), relapse prevention, importance of follow up with psychiatrist and therapist blood work for CA 125 was drawn, will f/u on result, to r/o malignancy Medication Change: Yes ( ) Medical Record Reviewed: Yes Consults ordered or reviewed: [facility] consult appreciated: 1. CA-125 drawn - it is a good predictor of postmenopausal epithelial ovarian malignancy 2. A simple cyst such as this is appropriate to follow with U/S every 6-12 months to look for changes in appearance. No need for surgical intervention or [facility] oncology consultation at this time. medical consult appreciated Goal/Treatment Plan - Goal/Treatment Plan Need for Continued Stay: Remain at risks for inpatient hospitalization Estimated Date of D/C: 08/14/17
--- NOTE | 2017-08-13 22:15 | CP.PCM.CON ---
History of Present Illness - History of Present Illness History of Present Illness: level II form completed after pt interview and in chart Past Patient History - Tetanus Immunizations Tetanus Immunization: Unknown - Past Social History Smoking Status: Unknown If Ever Smoked - CARDIAC Hx Cardiac Disorders: Yes Hx Hypertension: Yes - PULMONARY Hx Tuberculosis: No - NEUROLOGICAL HX Cerebrovascular Accident: No Hx Seizures: No - HEENT Hx HEENT Problems: No Hx Cataracts: No Hx Deafness: No Hx Difficulty Chewing: No Hx Epistaxis: No Hx Glaucoma: No Hx Macular Degeneration: No - RENAL Hx Chronic Kidney Disease: No Hx Dialysis: No Hx Kidney Stones: No Hx Pyelonephritis: No Hx Renal (Kidney) Cancer: No Hx Renal Failure: No - ENDOCRINE/METABOLIC Hx Endocrine Disorders: No Hx Adrenal Cancer: No Hx Diabetes Insipidus: No Hx Diabetes Mellitus Type 1: No Hx Diabetes Mellitus Type 2: No Hx Hyperthyroidism: No Hx Hypothyroidism: No Hx Systemic Lupus Erythematosus: No - HEMATOLOGICAL/ONCOLOGICAL Hx Cancer: No Hx Human Immunodeficiency Virus (HIV): No - INTEGUMENTARY Hx Dermatological Problems: No Hx Basil Cell: No Hx Eczema: No Hx Melanoma: No Hx Psoriasis: No Hx Squamous Cell: No - MUSCULOSKELETAL/RHEUMATOLOGICAL Hx Musculoskeletal Disorders: No Hx Arthritis: No Hx Back Pain: No Hx Degenerative Joint Disease: No Hx Falls: No Hx Fractures: No Hx Gout: No Hx Herniated Disk: No Hx Myasthenia Gravis: No Hx Osteoarthritis: No Hx Osteomyelitis: No Hx Osteoporosis: No Hx Rhabdomyolysis: No Hx Spinal Stenosis: No Hx Unsteady Gait: No - GASTROINTESTINAL Hx Gastrointestinal Disorders: No Hx Colostomy: No Hx Crohn's Disease: No Hx Diverticulitis: No Hx Gall Bladder Disease: No Hx Gastroesophageal Reflux: No Hx Ileostomy: No Hx Liver Failure: No Hx Pancreatitis: No HX Swallowing Problems: No - GENITOURINARY/GYNECOLOGICAL Hx Sexually Transmitted Disorders: No - PSYCHIATRIC Hx Anxiety: Yes Hx Substance Use: No - SURGICAL HISTORY Hx Amputation: No Hx Appendectomy: No Hx Cardiac Catheterization: No Hx Cholecystectomy: No Hx Coronary Stent: No Hx Gastric Bypass Surgery: No Hx Hysterectomy: No Hx Joint Replacement: No Hx Kidney Transplant: No Hx Liver Transplant: No Hx Mastectomy: No Hx Musculoskeletal Surgery: No Hx Open Heart Surgery: No Hx Orthopedic Surgery: No Hx Splenectomy: No Hx Valve Replacement: No Meds Allergies/Adverse Reactions: Allergies Allergy/AdvReac Type Severity Reaction Status Date / Time No Known Allergies Allergy Verified 08/06/17 01:48 - Medications Medications: Current Medications Acetaminophen (Tylenol 325mg Tab) 650 mg PO Q6H PRN PRN Reason: Pain, moderate (4-7) Last Admin: 08/09/17 17:24 Dose: 650 mg Citalopram Hydrobromide (Celexa) 20 mg PO DAILY STEPHEN Diphenhydramine HCl (Benadryl) 12.5 mg PO HS PRN PRN Reason: Insomnia Last Admin: 08/10/17 06:13 Dose: 12.5 mg Docusate Sodium (Colace) 100 mg PO BID STEPHEN Last Admin: 08/13/17 17:47 Dose: 100 mg Magnesium Hydroxide (Milk Of Magnesia) 30 ml PO DAILY PRN PRN Reason: Constipation Last Admin: 08/13/17 03:15 Dose: 30 ml Quetiapine Fumarate (Seroquel) 50 mg PO AMHS STEPHEN PRN Reason: Protocol Last Admin: 08/13/17 22:00 Dose: 50 mg Results - Vital Signs Recent Vital Signs: Last Vital Signs Temp 98.4 F 08/12/17 07:00 Pulse 62 08/13/17 15:48 Resp 18 08/12/17 07:00 BP 135/65 08/13/17 15:48 Pulse Ox 100 08/06/17 00:47 - Labs Result Diagrams: 08/06/17 07:29 08/06/17 07:29
[2017-08-14 06:46] VITALS: O2SAT 95
--- NOTE | 2017-08-14 14:38 | PN ---
SUBJECTIVE: I saw the patient sitting up eating breakfast. She looks well. She is comfortable. She wants to go back to [facility]. She is on Benadryl, Celexa, Colace, milk of magnesia, Seroquel and Tylenol. PHYSICAL EXAMINATION: VITAL SIGNS: 98.3 temperature, 64 pulse, 116/62 blood pressure, 18 respiration rate, 95% O2 sat on room air. HEENT: Head is atraumatic and normocephalic. Throat is moist. NECK: Supple. HEART: Regular rate. LUNGS: Clear to auscultation. ABDOMEN: Soft and nontender. Positive bowel sounds. EXTREMITIES: No edema. ASSESSMENT AND PLAN: Overall, I think she is doing fairly well. There was a consultation with Dr. Coffey. We will continue aggressive treatment and care as per psychiatry. She has dementia, psychosis, depression, ovarian cyst, abdominal pain, hypertension as per psychiatry when she will go back to [facility]. Addy Mtz DO
--- NOTE | 2017-08-14 14:40 | PCM.PYCHPN ---
Psychiatric Progress Note - Psychiatric Progress Note Patient seen today, length of contact: 30min Patient Chief Complaint: "why correction lie to me?" Medical Problems: multiple medical issues, please see medical team note for more detailed info Diagnostic Results: 08/06/17 07:29 08/06/17 07:29 Lab Results 08/06/17 07:29: Hemoglobin A1c 5.7 08/06/17 07:29: Sodium 141, Potassium 4.1, Chloride 107, Carbon Dioxide 24, Anion Gap 14, BUN 7, Creatinine 0.7, Est GFR ( Amer) > 60, Est GFR (Non- Af Amer) > 60, Random Glucose 84, Calcium 9.2, Total Bilirubin 0.5, AST 26, ALT 33, Alkaline Phosphatase 96, Total Protein 6.6, Albumin 3.5, Globulin 3.1, Albumin/Globulin Ratio 1.2, Triglycerides 82, Cholesterol 191, LDL Cholesterol Direct 74, HDL Cholesterol 75 H 08/06/17 07:29: WBC 3.7 L, RBC 4.59, Hgb 13.0, Hct 38.4, MCV 83.7, MCH 28.3, MCHC 33.9, RDW 14.0, Plt Count 196, MPV 8.2 08/05/17 20:10: Urine Opiates Screen Negative, Urine Methadone Screen Negative, Ur Barbiturates Screen Negative, Ur Phencyclidine Scrn Negative, Ur Amphetamines Screen Negative, U Benzodiazepines Scrn Positive H, U Oth Cocaine Metabols Negative, U Cannabinoids Screen Negative 08/05/17 20:10: Urine Color Yellow, Urine Appearance Clear, Urine pH 8.0, Ur Specific [place] 1.015, Urine Protein Negative, Urine Glucose (UA) Negative, Urine Ketones Negative, Urine Blood Negative, Urine Nitrate Negative, Urine Bilirubin Negative, Urine Urobilinogen 0.2, Ur Leukocyte Esterase Small H, Urine RBC 0 - 2, Urine WBC 0 - 2, Ur Epithelial Cells 1 - 3, Amorphous Sediment Moderate, Urine Bacteria Mod 08/05/17 19:55: Alcohol, Quantitative < 10 08/05/17 19:55: Salicylates < 1 L, Acetaminophen < 10.0 L 08/05/17 19:55: Sodium 139, Potassium 4.8, Chloride 105, Carbon Dioxide 26, Anion Gap 13, BUN 10, Creatinine 0.7, Est GFR ( Amer) > 60, Est GFR (Non- Af Amer) > 60, Random Glucose 87, Calcium 9.3, Total Bilirubin 0.7, AST 45 H, ALT 30, Alkaline Phosphatase 114, Total Protein 7.2, Albumin 4.0, Globulin 3.2, Albumin/Globulin Ratio 1.3, Lipase 132 08/05/17 18:30: WBC 3.7 L, RBC 4.68, Hgb 13.4, Hct 39.5, MCV 84.4, MCH 28.6, MCHC 33.9, RDW 14.1, Plt Count 222, MPV 8.9, Gran % 35.2 L, Lymph % (Auto) 55.1 H, [place] % (Auto) 8.3 H, Eos % (Auto) 1.1 L, Baso % (Auto) 0.3, Gran # 1.32 L, Lymph # 2.1, [place] # 0.3, Eos # 0.0, Baso # 0.01 Vital Signs Temp Pulse Resp BP Pulse Ox 08/07/17 07:00 98.3 F 68 17 102/58 L 08/06/17 16:07 65 109/64 08/06/17 01:51 18 08/06/17 00:47 98.3 F 68 18 165/97 H 100 08/05/17 23:13 72 18 138/88 100 08/05/17 17:28 99 F 66 16 145/76 100 USG ovarian cyst CA 125 was ordered, WNL Laboratory Results - last 24 hr 08/07/17 09:59 CA 125 Antigen 13.0 Temp Pulse Resp BP Pulse Ox 98.2 F 56 L 17 129/61 100 08/09/17 07:00 08/09/17 07:00 08/09/17 07:00 08/09/17 07:00 08/06/17 00:47 Temp Pulse Resp BP Pulse Ox 98.2 F 52 L 17 136/77 100 08/09/17 07:00 08/09/17 16:00 08/09/17 07:00 08/09/17 16:00 08/06/17 00:47 Temp Pulse Resp BP Pulse Ox 98.4 F 67 18 133/65 100 08/12/17 07:00 08/12/17 16:00 08/12/17 07:00 08/12/17 16:00 08/06/17 00:47 Temp Pulse Resp BP Pulse Ox 98.3 F 64 18 116/62 95 08/14/17 06:45 08/14/17 06:45 08/14/17 06:45 08/14/17 06:45 08/14/17 06:45 DSM 5 Symptoms Update: 87-year-old female with h/o dementia with psychosis, one previous psych admission to this facility in 2013 under 's service, pt has POA pt's niece who sign consent for tx, pt was sent by [facility] s/p suicidal attempt, pt put a telephone cord around her neck, pt also has a lot of psychosomatic delusions about stomach cancer, multiple abdominal complaints. pt was seen by hat lining blocker team, was found to have ovarian cyst. last week pt c/o of "twisting mouth", risperdal was d/c, seroquel started, pt tolerated it well. pt was seen today in her room, pt asked why [facility] lied to her, when was asked to clarify, pt went tangents about her pain in stomach, pt was educated again about the result of her tests that she has cyst in the ovaries and she needs to be f/u with outpatient hat lining blocker yearly, pt was appreciative, said "It is nice working with you", then smiled. pt said that she is not suicidal. as per RN report pt c/o abdominal pain, when off pain pt is sitting in dinning area, socializing with others. could be irritable at times, but no behavioral issues. MSE: acceptable personal hygiene, poor ADLs. Pt looks stated age, very thin build AAF, pt is more alert today, more talkative. eye contact:intermittent, mood described: " am okay", affect: was flat today, thought process: goal directed, thought content: denied SI/ HI at the moment of the interview, contracted for safety, somatic delusions are improved, denied paranoid ideation improved insight/judgment, impulses are well controlled Impression: as per h/o Alzheimer's dementia with psychosis as per h/o frontotemporal dementia as per h/o bipolar disorder. Plan: pt is off 1:1 for the past 24 hrs Milieu/structure/supportive therapy Medical consult appreciated, see medical team note for more detailed info SW consultation for discharge plan and social issues Med management celexa 20mg daily for depression meds resumed from the [place] xanax 0.25mg o daily as per [place] atorvastatin 20mg po daily as per [place] docusate 1cap bid as per [place] MVI po daily as per [place] risperidal d/c seroquel 50mg am 75hs for psychosis Family involvement Follow up on labs Will monitor closely Pt was educated about risk/benefits and alternatives of medications, coping strategies (safety plan, suicide prevention), relapse prevention, importance of follow up with psychiatrist and therapist blood work for CA 125 was drawn, will f/u on result, to r/o malignancy Medication Change: Yes (seroquel 75mg po hs) Medical Record Reviewed: Yes Mental Status Examination - Cognitive Function Attention: Poor Concentration: Poor Association: Loose Fund of Knowledge: Poor - Mood Mood: Depressed, Other ("I dont know") - Affect Affect: Constricted - Speech Speech: Soft - Formal Thought Process Formal Thought Process: Loosening of associations - Suicidal Ideation Suicidal Ideation: No - Homicidal Ideation Homicidal Ideation: No Goal/Treatment Plan - Goal/Treatment Plan Need for Continued Stay: Remain at risks for inpatient hospitalization Estimated Date of D/C: 08/15/17
[2017-08-15 07:14] VITALS: TEMP 98.2
--- NOTE | 2017-08-15 09:21 | PN ---
DATE: SUBJECTIVE: She is walking to the bathroom. She is alert. She is asking to go back to [facility] and was told that she is being discharged today by the nurse. No acute distress at baseline. She is on Benadryl, Celexa, Colace, milk of magnesia, Seroquel, and Tylenol. PHYSICAL EXAMINATION: VITAL SIGNS: She has had 98.2 temperature, 58 pulse, 132/72 blood pressure, 18 respiratory rate, and 95% saturations on room air. HEENT: Head is atraumatic and normocephalic. HEART: Regular rate. LUNGS: Clear to auscultation. ABDOMEN: Soft. EXTREMITIES: No edema. Plan is to discharge today back to [facility]. I will see her over there. She had CA-125 which was normal at 13. Hopefully, she would do very well back at [facility] where she is a permanent resident. She had suicidal ideation, depression, ovarian cyst, abdominal pain, and hypertension. Addy Mtz DO [email or web address]
--- NOTE | 2017-08-15 15:08 | PCM.PYCHDC ---
Mental Status Examination - Mental Status Examination Orientation: Person, Place Memory: Impaired (pt has dementia) Mood: Neutral Affect: Constricted Attention: Poor (somewhat better) Concentration: Poor (womewhat better) Association: Loose (chronic) Fund of Knowledge: WNL Formal Thought Process: Delusions (somatic delusions) Description of patient's judgement and insight: Pt has improved insight into mental and medical illness, pt was compliant with medications and unit rules and regulations, pt was going to groups, was calm, cooperative, socially appropriate, no behavioral incidents, no agitation, no aggression. Psychotic Thoughts and Behaviors: Pt denied v/a/t hallucinations, denied paranoid ideations, pt does not appear to be psychotic, and thought process is goal directed. Suicidal Ideation: No Current Homicidal Ideation?: No Plan: pt adamantly denied thoughts of harming self or others denied intent or plan. Discharge Summary - Discharge Note Reason for Hospitalization: pt was admitted for evaluation of depressive symptoms which are related to somatic delusions that pt has stomach cancer, pt put a telephone cord around her neck, attempted to kill herself in the [place]. Psychiatric History (includes Medical, Family, Personal Hx): h/o dementia with delusions Laboratory Data: 08/06/17 07:29 08/06/17 07:29 Lab Results 08/07/17 09:59: CA 125 Antigen 13.0 08/06/17 07:29: Hemoglobin A1c 5.7 08/06/17 07:29: Sodium 141, Potassium 4.1, Chloride 107, Carbon Dioxide 24, Anion Gap 14, BUN 7, Creatinine 0.7, Est GFR ( Amer) > 60, Est GFR (Non- Af Amer) > 60, Random Glucose 84, Calcium 9.2, Total Bilirubin 0.5, AST 26, ALT 33, Alkaline Phosphatase 96, Total Protein 6.6, Albumin 3.5, Globulin 3.1, Albumin/Globulin Ratio 1.2, Triglycerides 82, Cholesterol 191, LDL Cholesterol Direct 74, HDL Cholesterol 75 H 08/06/17 07:29: WBC 3.7 L, RBC 4.59, Hgb 13.0, Hct 38.4, MCV 83.7, MCH 28.3, MCHC 33.9, RDW 14.0, Plt Count 196, MPV 8.2 08/05/17 20:10: Urine Opiates Screen Negative, Urine Methadone Screen Negative, Ur Barbiturates Screen Negative, Ur Phencyclidine Scrn Negative, Ur Amphetamines Screen Negative, U Benzodiazepines Scrn Positive H, U Oth Cocaine Metabols Negative, U Cannabinoids Screen Negative 08/05/17 20:10: Urine Color Yellow, Urine Appearance Clear, Urine pH 8.0, Ur Specific [place] 1.015, Urine Protein Negative, Urine Glucose (UA) Negative, Urine Ketones Negative, Urine Blood Negative, Urine Nitrate Negative, Urine Bilirubin Negative, Urine Urobilinogen 0.2, Ur Leukocyte Esterase Small H, Urine RBC 0 - 2, Urine WBC 0 - 2, Ur Epithelial Cells 1 - 3, Amorphous Sediment Moderate, Urine Bacteria Mod 08/05/17 19:55: Alcohol, Quantitative < 10 08/05/17 19:55: Salicylates < 1 L, Acetaminophen < 10.0 L 08/05/17 19:55: Sodium 139, Potassium 4.8, Chloride 105, Carbon Dioxide 26, Anion Gap 13, BUN 10, Creatinine 0.7, Est GFR ( Amer) > 60, Est GFR (Non- Af Amer) > 60, Random Glucose 87, Calcium 9.3, Total Bilirubin 0.7, AST 45 H, ALT 30, Alkaline Phosphatase 114, Total Protein 7.2, Albumin 4.0, Globulin 3.2, Albumin/Globulin Ratio 1.3, Lipase 132 08/05/17 18:30: WBC 3.7 L, RBC 4.68, Hgb 13.4, Hct 39.5, MCV 84.4, MCH 28.6, MCHC 33.9, RDW 14.1, Plt Count 222, MPV 8.9, Gran % 35.2 L, Lymph % (Auto) 55.1 H, [place] % (Auto) 8.3 H, Eos % (Auto) 1.1 L, Baso % (Auto) 0.3, Gran # 1.32 L, Lymph # 2.1, [place] # 0.3, Eos # 0.0, Baso # 0.01 Vital Signs Temp Pulse Resp BP Pulse Ox 08/15/17 07:12 98.2 F 58 L 18 132/72 08/14/17 17:41 97.7 F 08/14/17 16:31 55 L 124/62 08/14/17 06:45 98.3 F 64 18 116/62 95 08/13/17 15:48 62 135/65 08/12/17 16:00 67 133/65 08/12/17 07:00 98.4 F 61 18 108/55 L 08/11/17 16:00 60 144/66 08/11/17 07:07 97 F L 59 L 17 139/70 08/10/17 15:00 61 140/82 08/10/17 07:00 97.6 F 66 18 130/78 08/09/17 16:00 52 L 136/77 08/09/17 07:00 98.2 F 56 L 17 129/61 08/09/17 06:48 98.2 F 56 L 17 129/61 08/08/17 16:00 56 L 121/63 08/08/17 07:01 98.2 F 51 L 17 116/60 08/07/17 16:00 63 121/65 08/07/17 07:00 98.3 F 68 17 102/58 L 08/06/17 16:07 65 109/64 08/06/17 01:51 18 08/06/17 00:47 98.3 F 68 18 165/97 H 100 08/05/17 23:13 72 18 138/88 100 08/05/17 17:28 99 F 66 16 145/76 100 Consultations:: List each consultation separately and include: 1. Reason for request. 2. Findings. 3. Follow-up Consultations: urogynecology physician consult appreciated: 1. CA-125 drawn - it is a good predictor of postmenopausal epithelial ovarian malignancy 2. A simple cyst such as this is appropriate to follow with U/S every 6-12 months to look for changes in appearance. No need for surgical intervention or urogynecology physician oncology consultation at this time. medical consult appreciated Summary of Hospital Course include:: 1. Description of specific treatment plan utilized for patients during their course of treatmen. 2. Summarize the time- course for resolution of acute symptoms and/or regressed behaviors. 3. Describe issues identified and worked on during hospitalization. 4. Describe medication utilized. 5. Describe medical problems identified and treated. 6. Reassessment of suicide risk Summary of Hospital Course: 87-year-old female with h/o dementia with psychosis, one previous psych admission to this facility in 2013 under 's service, pt has POA pt's niece who sign consent for tx, pt was sent by [facility] s/p suicidal attempt, pt put a telephone cord around her neck, pt also has a lot of psychosomatic delusions about stomach cancer, multiple abdominal complaints. Due to the severity of patients symptoms s/p suicidal attempt, disorganized thoughts and behavior, pt could not be maintained as outpatient setting, needed further evaluation and stabilization in acute psychiatric unit. Stressors: somatic delusions and possible abdominal pain and discomfort. pt was seen at tx team meeting, pt is on 1:1 for risk of falls. at the moment of the initial interview pt has a lot of somatic delusions "I know I have a stomach cancer because I have pain", pt is convinced that it it true, d/w today, no evidence of cancer. Depression: "I was very depressed, I wanted to end up my life", "Now I don't feel this way, I changed my mind", no clear explanation why, pt also reported to feel hopeless and helpless. Suicidal thoughts/plans/intent:pt denied thoughts of harming self or others during the interview, denied intent or plan, no remorse for her attempt in [place]. Rosa:no manic symptoms identified or reported. Anxiety:denied PTSD:denied Abuse:denied Substance abuse: pt denied using drugs, denied smoking. Past psychiatric h/o:h/o dementia with psychosis, as per h/o Bipolar disorder II , h/o one prior psych admission in 2013 into this facility for tactile hallucinations, inability to function. Suicidal attempts: denied Medical h/o: frontotemporal dementia, hyperlipidemia, Alzheimer's disease Family h/o: unknown Social h/o: as per previous assessment pt was , lived in [place], pt has 2 sons, nieces. Treatment goals: "I want to feel better and get out of here...." 08/06/17 07:29 08/06/17 07:29 Lab Results 08/06/17 07:29: Hemoglobin A1c 5.7 08/06/17 07:29: Sodium 141, Potassium 4.1, Chloride 107, Carbon Dioxide 24, Anion Gap 14, BUN 7, Creatinine 0.7, Est GFR ( Amer) > 60, Est GFR (Non- Af Amer) > 60, Random Glucose 84, Calcium 9.2, Total Bilirubin 0.5, AST 26, ALT 33, Alkaline Phosphatase 96, Total Protein 6.6, Albumin 3.5, Globulin 3.1, Albumin/Globulin Ratio 1.2, Triglycerides 82, Cholesterol 191, LDL Cholesterol Direct 74, HDL Cholesterol 75 H 08/06/17 07:29: WBC 3.7 L, RBC 4.59, Hgb 13.0, Hct 38.4, MCV 83.7, MCH 28.3, MCHC 33.9, RDW 14.0, Plt Count 196, MPV 8.2 08/05/17 20:10: Urine Opiates Screen Negative, Urine Methadone Screen Negative, Ur Barbiturates Screen Negative, Ur Phencyclidine Scrn Negative, Ur Amphetamines Screen Negative, U Benzodiazepines Scrn Positive H, U Oth Cocaine Metabols Negative, U Cannabinoids Screen Negative 08/05/17 20:10: Urine Color Yellow, Urine Appearance Clear, Urine pH 8.0, Ur Specific [place] 1.015, Urine Protein Negative, Urine Glucose (UA) Negative, Urine Ketones Negative, Urine Blood Negative, Urine Nitrate Negative, Urine Bilirubin Negative, Urine Urobilinogen 0.2, Ur Leukocyte Esterase Small H, Urine RBC 0 - 2, Urine WBC 0 - 2, Ur Epithelial Cells 1 - 3, Amorphous Sediment Moderate, Urine Bacteria Mod 08/05/17 19:55: Alcohol, Quantitative < 10 08/05/17 19:55: Salicylates < 1 L, Acetaminophen < 10.0 L 08/05/17 19:55: Sodium 139, Potassium 4.8, Chloride 105, Carbon Dioxide 26, Anion Gap 13, BUN 10, Creatinine 0.7, Est GFR ( Amer) > 60, Est GFR (Non- Af Amer) > 60, Random Glucose 87, Calcium 9.3, Total Bilirubin 0.7, AST 45 H, ALT 30, Alkaline Phosphatase 114, Total Protein 7.2, Albumin 4.0, Globulin 3.2, Albumin/Globulin Ratio 1.3, Lipase 132 08/05/17 18:30: WBC 3.7 L, RBC 4.68, Hgb 13.4, Hct 39.5, MCV 84.4, MCH 28.6, MCHC 33.9, RDW 14.1, Plt Count 222, MPV 8.9, Gran % 35.2 L, Lymph % (Auto) 55.1 H, [place] % (Auto) 8.3 H, Eos % (Auto) 1.1 L, Baso % (Auto) 0.3, Gran # 1.32 L, Lymph # 2.1, [place] # 0.3, Eos # 0.0, Baso # 0.01 Vital Signs Temp Pulse Resp BP Pulse Ox 08/06/17 01:51 18 08/06/17 00:47 98.3 F 68 18 165/97 H 100 08/05/17 23:13 72 18 138/88 100 08/05/17 17:28 99 F 66 16 145/76 100 over the course of this hospitalization Risperdal was discontinued because patient had some lip smacking and stiffness of her jaw Seroquel was started and titrated to 50 mg at the morning time and 75 mg at the nighttime for mood stabilization and somatic delusions Xanax was continued Celexa was continued with 20 mg daily for depression Multivitamin was continued patient tolerated medications well, no side effects observed or reported, aims 0 , no EPS. Patient was seen by medical team as well as [facility] team please see consultation notes for more detailed information Over the course of this hospitalization pt was attending selective groups, pt also had medication management, had therapeutic milieu. Overall pt improved significantly, pt's affect became mildly brighter, pt was less depressed, has realistic future oriented plans, pt also does not appear to be psychotic, or anxious, pt was socially appropriate, no behavioral issues, pt s insight improved as well and soon pt deemed to be ready for discharge. At the time of the discharge pt said that her depression is "little better", denied thoughts of harming self or others, denied psychotic symptoms, and pt does not appeared to be psychotic, denied been anxious, pt is not in imminent danger to self or others, will be following up with psychiatrist at the [place], information about follow up appointment, time and address provided to the pt, it is [place] responsibility to provide pt with f/u appt with PMD as well as specialists (see SW note for more detailed information). As per urogynecology physician consult it was recommended: pt has a simple ovarian cyst such as this is appropriate to follow with U/S every 6-12 months to look for changes in appearance. No need for surgical intervention or urogynecology physician oncology consultation at this time. In case pt will need to obtain results of studies pending at discharge pt was provided with contact information of Psychiatric Inpatient unit [phone] as well as Medical Record Department [phone]. Pt's POA was notified about discharge pt was provided with prescriptions for all of medications (please see medication reconciliation form) Pt was educated about safety plan in case of worsening of symptoms or in case of suicidal or homicidal ideation call 911 or go to the nearest ER, also was educated to take meds as prescribed and stay away from drugs, pt verbalized understanding. - Diagnosis (1) Somatic delusion Current Visit: Yes Status: Acute (2) MDD (major depressive disorder) Current Visit: Yes Status: Acute (3) Dementia Current Visit: Yes Status: Acute - Final Diagnosis (DSM 5) Condition upon Discharge: STABLE Disposition: HOME/ ROUTINE Follow-up Treatment Plan: At the time of the discharge pt said that her depression is "little better", denied thoughts of harming self or others, denied psychotic symptoms, and pt does not appeared to be psychotic, denied been anxious, pt is not in imminent danger to self or others, will be following up with psychiatrist at the [place], information about follow up appointment, time and address provided to the pt, it is [place] responsibility to provide pt with f/u appt with PMD as well as specialists (see SW note for more detailed information). As per urogynecology physician consult it was recommended: pt has a simple ovarian cyst such as this is appropriate to follow with U/S every 6-12 months to look for changes in appearance. No need for surgical intervention or urogynecology physician oncology consultation at this time. In case pt will need to obtain results of studies pending at discharge pt was provided with contact information of Psychiatric Inpatient unit [phone] as well as Medical Record Department [phone]. Pt's POA was notified about discharge pt was provided with prescriptions for all of medications (please see medication reconciliation form) Pt was educated about safety plan in case of worsening of symptoms or in case of suicidal or homicidal ideation call 911 or go to the nearest ER, also was educated to take meds as prescribed and stay away from drugs, pt verbalized understanding. Prescriptions/Medication Reconciliation: QUEtiapine [SEROquel] 50 mg PO AMHS #1 tab QUEtiapine [SEROquel] 25 mg PO HS #1 tab - Smoking Cessation Smoking Cessation Medication prescribed: No Reason for not providing: pt denied smoking - Antipsychotic Medications Pt discharged on 2 or more routine antipsychotic medications: No
[2017-08-15 16:44] VITALS: BP 102/51; PULSE 68
== END 2017-08-15 19:42 | DRG 881 ==
LOC: ED 17:16 → ERH 22:41 → PSYC 08-06 00:30
PROVIDERS: ADMIT Psychiatry & Neurology Psychiatry; ATTEND Psychiatry & Neurology Psychiatry
DX: F32.9 Major depressive disorder, single episode, unspecified (principal); N39.0 Urinary tract infection, site not specified; R45.851 Suicidal ideations; G30.9 Alzheimer's disease, unspecified; F02.80 Dementia in other diseases classified elsewhere, unspecified severity, without behavioral disturbance, psychotic disturbance, mood disturbance, and anxiety; G31.09 Other frontotemporal neurocognitive disorder; F22 Delusional disorders; N83.201 Unspecified ovarian cyst, right side; K59.00 Constipation, unspecified; I10 Essential (primary) hypertension; E78.00 Pure hypercholesterolemia, unspecified